=== PATIENT | female | born 1955 | race Caucasian/White ===

== ENCOUNTER 2020-07-29 09:17 | Outpatient (REF) | payer OTHER, SELFPAY ==
--- NOTE | 2020-07-29 | US_ITS ---
EXAMINATION: NONINVASIVE ASSESSMENT OF THE ARTERIES OF BOTH LOWER EXTREMITIES TO INCLUDE A PVR EXAM LIMITED (1-2 LEVELS) AND PRADIP, BILATERAL ? CLINICAL INFORMATION: Peripheral vascular disease COMPARISON: Noninvasive ultrasound examination of the lower extremities on 01/16/2020 TECHNIQUE: The ankle/brachial indices of the distal posterior tibial and the dorsalis pedis arteries were obtained of the lower extremity arterial system on the right; along with pressures and pulse volume recordings at the ankle and duplex Doppler techniques of the common femoral, proximal profunda, superficial femoral, popliteal, and posterior tibial arteries. The study was performed at rest. ? FINDINGS AT REST:? RIGHT LE. Right Ankle-Brachial Index: 0.99 (higher of the DP/PT) >0.97-1.25 = normal - no significant arterial disease 0.75-0.96 = mild peripheral arterial disease 0.50-0.74 = moderate peripheral arterial disease <0.50 = severe peripheral arterial disease <0.30 = critical arterial disease 2. SEGMENTAL PRESSURES: Ankle: PT 151 DP 144 3. PVR WAVEFORMS: Ankle: Biphasic 4. DIRECT DUPLEX: Common femoral: Biphasic waveform, Significant atherosclerotic plaque, elevated velocities, greater than 2:1 ratio Proximal femoral: Biphasic waveform, normal velocity, no significant atherosclerotic disease Mid femoral: Biphasic waveform, normal velocity, no significant atherosclerotic disease Distal femoral: Biphasic waveform, normal velocity, no significant atherosclerotic disease Proximal profunda: Biphasic waveform, normal velocity, no significant atherosclerotic disease Popliteal: Biphasic waveform, normal velocity, no significant atherosclerotic disease Posterior tibial: Biphasic waveform, normal velocity, no significant atherosclerotic disease No right lower extremity stents or bypass graft is visualized. ? IMPRESSION: 1. Normal right leg PRADIP. 2. Significant atherosclerotic plaque in the right common femoral artery with elevated velocities suggesting moderate stenosis.
== END 2020-07-29 09:18 | disposition home or self-care (01) ==
LOC: HO.US 09:17
PROVIDERS: PCP Hospitalist; Visit Provider Surgery Vascular Surgery
DX: I73.9 Peripheral vascular disease, unspecified (principal)
CPT/HCPCS: 93923; 93926

== ENCOUNTER → 2020-08-19 10:52 | Outpatient (BNVA) | payer OTHER, SELFPAY | PROVIDERS: PCP Hospitalist; Visit Provider Surgery Vascular Surgery | DX: I73.9 Peripheral vascular disease, unspecified (principal); Z89.512 Acquired absence of left leg below knee | CPT/HCPCS: 99213 ==

== ENCOUNTER 2020-08-26 08:22 | Day surgery (SDC) | payer OTHER, SELFPAY ==
[2020-08-19 15:07] VITALS: BMI 17.4
--- NOTE | 2020-08-25 12:20 | P.CONAN_ITS ---
Documented by User: Renetta Dior 08/25/20 12:26 HPI - Anesthesia Eval Consult details Narrative: 64yo F for Colonoscopy PMFSH Past Medical History Medical History Carotid artery stenosis CVA (cerebral vascular accident) GERD (gastroesophageal reflux disease) Hyperlipidemia Hypertension On beta angel at home Peripheral artery disease PVD (peripheral vascular disease) Surgical History Surgical History H/O colonoscopy Hx of blood clots S/P BKA (below knee amputation) Status post femoropopliteal bypass surgery Social History Social History Smoking Status: Former smoker Years Smoked: 30 Smoking Quit Date: 2017 Patient Interested in Nicotine Replacement: No Patient Given Instructions on How to Stop Smoking: No Second Hand Smoke Exposure: No Use of substances other than those prescribed or required for medical reasons: No Have you been hit, kicked, punched, or otherwise hurt by someone within the past year? If so, by whom?: No Advance Directives: No Advance Directives Information Provided: No Advance Directives on File: No Meds Allergies Allergy/AdvReac Type Severity Reaction Status Date / Time Penicillins [PENICILLINS] Allergy Severe ANAPHYLAXIS Verified 08/26/20 09:00 Home Medications Medication Instructions Recorded Confirmed Type amlodipine 5 mg tablet 5 mg PO DAILY 08/19/20 08/19/20 History aspirin 81 mg chewable tablet 1 tab PO DAILY 08/19/20 08/19/20 History atorvastatin 40 mg PO DAILY 08/19/20 08/19/20 History folic acid 1 mg tablet 1 mg PO DAILY 08/19/20 08/19/20 History metoprolol succinate 25 mg 25 mg PO DAILY 08/19/20 08/26/20 History tablet,extended release 24 hr peg 3350-electrolytes 236 ml PO DIRECTED 08/19/20 History gram-22.74 gram-6.74 gram-5.86 gram solution Exam Exam Date and Time: August 25, 2020 1220 Height,Weight and Vital Signs: Height 5 ft 2 in Weight 43.091 kg Narrative Narrative: EKG 08/2019: NSR with SA @ 88, LAD Assessment and Plan Assessment Anesthesia Assessment: Chart Reviewed Documented by User: Marguerite Jose 08/26/20 09:43 [facility] Past Medical History Medical History Carotid artery stenosis CVA (cerebral vascular accident) GERD (gastroesophageal reflux disease) Hyperlipidemia Hypertension On beta angel at home Peripheral artery disease PVD (peripheral vascular disease) Surgical History Surgical History H/O colonoscopy Hx of blood clots S/P BKA (below knee amputation) Status post femoropopliteal bypass surgery Social History Social History Smoking Status: Former smoker Years Smoked: 30 Smoking Quit Date: 2017 Patient Interested in Nicotine Replacement: No Patient Given Instructions on How to Stop Smoking: No Second Hand Smoke Exposure: No Use of substances other than those prescribed or required for medical reasons: No Have you been hit, kicked, punched, or otherwise hurt by someone within the past year? If so, by whom?: No Advance Directives: No Advance Directives Information Provided: No Advance Directives on File: No Meds Allergies Allergy/AdvReac Type Severity Reaction Status Date / Time Penicillins [PENICILLINS] Allergy Severe ANAPHYLAXIS Verified 08/26/20 09:00 Home Medications Medication Instructions Recorded Confirmed Type amlodipine 5 mg tablet 5 mg PO DAILY 08/19/20 08/19/20 History aspirin 81 mg chewable tablet 1 tab PO DAILY 08/19/20 08/19/20 History atorvastatin 40 mg PO DAILY 08/19/20 08/19/20 History folic acid 1 mg tablet 1 mg PO DAILY 08/19/20 08/19/20 History metoprolol succinate 25 mg 25 mg PO DAILY 08/19/20 08/26/20 History tablet,extended release 24 hr peg 3350-electrolytes 236 ml PO DIRECTED 08/19/20 History gram-22.74 gram-6.74 gram-5.86 gram solution Assessment and Plan Assessment Anesthesia Assessment: Anesthesia Plan Discussed and Chart Reviewed Final Anesthetic Review NPO: Yes ASA Class: II Final Preanesthetic Review: No Changes in Pt Med Stat, Meds/Allgs Chart Reviewed, Consent Obtained/Reviewed and Anes Risks/Benef Reviewed Patient Risk: Low Procedure Risk: Low Anesthetic Plan Anesthetic Plan: MAC: Disposition: Standard PACU
[2020-08-26] MEDS: Lactated Ringers 1,000 ML 100 ML IVCONT (09:00)
[2020-08-26 09:01] VITALS: BP 153/69; PULSE 96; RESP 16; TEMP 36.6; O2SAT 100
[2020-08-26 09:04] VITALS: BMI 18.6
--- NOTE | 2020-08-26 09:31 | MHC.SHP ---
Pre-Procedural Eval Section B Chief Complaint: SCREENING Details of Present Illness: Colon cancer screening Peripheral arterial vascular disease with LBKA--09/03/19 Relevant Family History (Specify if Yes): No Relevant Social History: None Present Medications: see Short Stay Collaborative assessment Medical History: Significant History (Hypertension, hyperlipidemia, peripheral arterial vascular disease, Gerd) History of Previous Operations: No relevant previous surgery Allergies: Allergies Allergy/AdvReac Type Severity Reaction Status Date / Time Penicillins [PENICILLINS] Allergy Severe ANAPHYLAXIS Verified 08/26/20 09:00 Review of Systems Sugical H&P ROS: Negative: Constitution, Cardiovascular, Respiratory and Gastrointestinal (last colo > 10 yrs ago) Exam Surgical H&P Exam: Normal: HEENT, Normal: Heart, Normal: Lungs and Normal: Skin and Significant Findings: Extremities (LBKA) Plan Diagnosis/Plan: Unchanged Patient has been examined and remains a candidate for the planned procedure--YES
--- NOTE | 2020-08-26 09:43 | HO.ANESPROP2 ---
[facility] Past Medical History Medical History Carotid artery stenosis CVA (cerebral vascular accident) GERD (gastroesophageal reflux disease) Hyperlipidemia Hypertension On beta angel at home Peripheral artery disease PVD (peripheral vascular disease) Surgical History Surgical History H/O colonoscopy Hx of blood clots S/P BKA (below knee amputation) Status post femoropopliteal bypass surgery Social History Social History Smoking Status: Former smoker Years Smoked: 30 Smoking Quit Date: 2017 Patient Interested in Nicotine Replacement: No Patient Given Instructions on How to Stop Smoking: No Second Hand Smoke Exposure: No Use of substances other than those prescribed or required for medical reasons: No Have you been hit, kicked, punched, or otherwise hurt by someone within the past year? If so, by whom?: No Advance Directives: No Advance Directives Information Provided: No Advance Directives on File: No Meds Allergies Allergy/AdvReac Type Severity Reaction Status Date / Time Penicillins [PENICILLINS] Allergy Severe ANAPHYLAXIS Verified 08/26/20 09:00 Home Medications Medication Instructions Recorded Confirmed Type amlodipine 5 mg tablet 5 mg PO DAILY 08/19/20 08/19/20 History aspirin 81 mg chewable tablet 1 tab PO DAILY 08/19/20 08/19/20 History atorvastatin 40 mg PO DAILY 08/19/20 08/19/20 History folic acid 1 mg tablet 1 mg PO DAILY 08/19/20 08/19/20 History metoprolol succinate 25 mg 25 mg PO DAILY 08/19/20 08/26/20 History tablet,extended release 24 hr peg 3350-electrolytes 236 ml PO DIRECTED 08/19/20 History gram-22.74 gram-6.74 gram-5.86 gram solution Exam Exam Date and Time: August 26, 2020 0943 Height,Weight and Vital Signs: Height 5 ft 2 in Weight 46.266 kg Last Vital Signs Temp 97.9 F 08/26/20 09:01 Pulse 96 08/26/20 09:01 Resp 16 08/26/20 09:01 BP 153/69 H 08/26/20 09:01 Pulse Ox 100 08/26/20 09:01 Airway Mallampati Class: II TM Dist: >3cm Neck ROM: Full Loose/Missing/Broken Teeth: Yes and Upper
--- NOTE | 2020-08-26 10:18 | PM.PROC ---
Brief Operative Note Date of procedure: 08/26/20 Pre-op diagnosis: colon cancer screening Post-op diagnosis: other (Colonic polyps, Diverticulosis, Int.Hemorrhoids.) Procedure: colonoscopy with excisional polypectomy x3 and rectal bx Anesthesia: MAC (MD Mitchell) Surgeon: Nurys Call Estimated blood loss (mL): 5 Pathology: other (asc colon polyp, Descending colon polyp, rectal bx thickened fold) Condition: stable Disposition: PACU
[2020-08-26 10:20] VITALS: BP 106/48; PULSE 76; RESP 16; TEMP 36.2; O2SAT 100
[2020-08-26 10:36] VITALS: BP 121/64; PULSE 79; RESP 16; TEMP 36.2; O2SAT 100
--- NOTE | 2020-08-26 10:58 | HO.POSTANES ---
Post Anesthesia Evaluation Post Anesthesia Evaluation Vital Signs: Vital Signs Temp Pulse Resp BP Pulse Ox 08/26/20 10:36 97.2 F 79 16 121/64 100 08/26/20 10:20 97.2 F 76 16 106/48 L 100 08/26/20 09:01 97.9 F 96 16 153/69 H 100 Anesthesia: Monitored Mental Status: Awake Pain Control: Satisfactory Nausea/Vomiting: None Hydration: Adequate Anesthesia-Related Issues: No Anes. Related Issues
--- NOTE | 2020-08-26 11:15 | OP_ITS ---
SURGEON: Nurys Call MD PROCEDURE PERFORMED: Colonoscopy with excisional polypectomies x2, rectal biopsy x1. ESTIMATED BLOOD LOSS: Minimal. COMPLICATIONS: No complications. ANESTHESIA: Monitored. ANESTHESIOLOGIST: Dr. Medrano ASSISTANTS: No bankruptcy assistant. SPECIMENS: Ascending colon polyp, descending colon polyp, 50 cm, rectal biopsies. PREOPERATIVE DIAGNOSES: Colon cancer screening, 10-year interval. POSTOPERATIVE DIAGNOSES: Colonic polyps, diverticulosis, internal hemorrhoids. TELLER: Dr. Call. FINDINGS: Digital rectal exam revealed sphincter tone to be adequate. Video colonoscope was introduced without difficulty, navigated into rectosigmoid and sigmoid. There were scattered diverticula in this area. Prep was good with some residual slightly thickened fluid adherent to the mucosa requiring mild flushing and suctioning. The scope was advanced through descending transverse, ascending colon with extrinsic abdominal pressure, facilitated movement into the cecum. Appendiceal orifice was seen. Ileocecal valve was seen. Polyps identified in the ascending colon and descending colon were removed excisionally with cold biopsy forceps. There was a texture change in the rectum and that area was biopsied with cold biopsy forceps. On withdrawing the scope. 1+ Internal hemorrhoids were noted in the anal canal. PLAN AND CURRENT RECOMMENDATIONS: Repeat asymptomatic screening in this patient should be 5 years. GRAFT OR IMPLANTS: No grafts or implants. CONDITION: Postprocedure, stable. Nurys Call MD MEN/MODL / [id number] MTDD
== END 2020-08-26 11:03 | disposition home or self-care (01) ==
PROVIDERS: PCP Hospitalist; Visit Provider Internal Medicine Gastroenterology
PROC: 0DJD8ZZ Inspection of Lower Intestinal Tract, Via Natural or Artificial Opening Endoscopic (ICD-10-PCS; CPT 45378; principal; 2020-08-26 09:30)
DX: Z12.11 Encounter for screening for malignant neoplasm of colon (principal); D12.2 Benign neoplasm of ascending colon; D12.5 Benign neoplasm of sigmoid colon; K57.30 Diverticulosis of large intestine without perforation or abscess without bleeding; K62.89 Other specified diseases of anus and rectum; K64.8 Other hemorrhoids; K21.9 Gastro-esophageal reflux disease without esophagitis; I10 Essential (primary) hypertension; I73.9 Peripheral vascular disease, unspecified; Z79.82 Long term (current) use of aspirin; Z79.899 Other long term (current) drug therapy; Z86.73 Personal history of transient ischemic attack (TIA), and cerebral infarction without residual deficits; Z89.512 Acquired absence of left leg below knee; Z87.891 Personal history of nicotine dependence; Z88.0 Allergy status to penicillin
CPT/HCPCS: 45380; 88305

== ENCOUNTER 2020-10-14 10:46 | Outpatient (REF) | payer OTHER, SELFPAY ==
[2020-10-14 13:34] LABS: Hematocrit 40.5 % (37-47); Mean Corpuscular HGB Conc 34.6 g/dl (31.0-35.0); Mean Corpuscular Hemoglobin 34.3 pg (27.0-33.0); Mean Corpuscular Volume 99.3 fL (80-98); Mean Platelet Volume 10.8 fL (9.4-12.3); Platelet Count 231 X10*3/uL (160-400); Red Blood Count 4.08 X10*6/uL (4.20-5.50); Red Cell Distribution Width 12.2 % (11.0-16.0); White Blood Count 10.6 X10*3/uL (4.8-10.8)
[2020-10-14 13:55] LABS: Anion Gap 13 (12-20); Blood Urea Nitrogen 4 mg/dL (9-16); Calcium 8.3 mg/dL (8.4-10.2); Carbon Dioxide 32 mmol/L (22-29); Chloride 97 mmol/L (96-108); Estimated Glomerular Filt Rate > 60; Glucose Fasting 102 mg/dL (60-99); Potassium 3.1 mmol/l (3.3-5.1); Sodium 139 mmol/L (135-145)
[2020-10-14 14:20] LABS: TSH reflex Free T4 1.17 mIU/mL (0.32-4.0)
== END 2020-10-14 10:47 | disposition home or self-care (01) ==
LOC: HO.WFDLDS 10:46
PROVIDERS: Visit Provider Hospitalist
DX: D64.9 Anemia, unspecified (principal); E87.6 Hypokalemia; I73.9 Peripheral vascular disease, unspecified
CPT/HCPCS: 36415; 80048; 84443; 85027

== ENCOUNTER 2021-08-11 14:22 | Outpatient (REF) | payer MEDICARE, OTHER, SELFPAY ==
--- NOTE | ~2021-08-11 | US_ITS ---
EXAMINATION: Right LOWER EXTREMITY DUPLEX CLINICAL INFORMATION: Peripheral vascular disease COMPARISON: Ultrasound 07/29/2020 TECHNIQUE: Ankle pulse volume recordings, ankle pressure measurements and ankle brachial indices were obtained of the lower extremity arterial system Real-time ultrasound and Doppler techniques (integrating B-mode 2-D vascular images, Doppler spectral analysis and color flow Doppler imaging) were utilized to interrogate the lower extremities. FINDINGS: RIGHT LE. Right Ankle-Brachial Index: 0.5 (higher of the DP/PT) >0.97-1.25 = normal - no significant arterial disease 0.75-0.96 = mild peripheral arterial disease 0.5-0.74 = moderate peripheral arterial disease <0.50 = severe peripheral arterial disease <0.30 = critical arterial disease 2. Segmental Pressures (mmHg): Brachial: 112 Ankle: PT 133, DP 127 3. PVR Waveforms: Ankle: Blunted, loss of dicrotic notch Common femoral artery: 301 cm/s, multiphasic Profunda femoris artery: 53.4 cm/s, multiphasic Superficial femoral artery (proximal): 223 cm/s, multiphasic Superficial femoral artery (mid): 119 cm/s, multiphasic Superficial femoral artery (distal): 172 cm/s, multiphasic Proximal popliteal: 206 cm/s, multiphasic Popliteal artery: 80.3 cm/s, multiphasic Proximal posterior tibial artery: 52.6 cm/s, multiphasic Distal posterior tibial artery: 78.6 cm/s, multiphasic Peroneal artery: 42 cm/s, monophasic US/US arterial duplex LE RT IMPRESSION: Normal right lower extremity PRADIP. Loss of dicrotic notch on PVR waveform suggesting inflow disease. Elevated flow velocity within the common femoral artery suggesting at least a moderate stenosis. In addition there is elevated flow velocity at the level of the distal SFA proximal popliteal artery suggesting stenosis at this level. There is otherwise multiphasic flow throughout the right lower extremity.
== END 2021-08-11 14:23 | disposition home or self-care (01) ==
LOC: HO.US 14:22
PROVIDERS: PCP Hospitalist; Visit Provider Surgery Vascular Surgery
DX: I73.9 Peripheral vascular disease, unspecified (principal)
CPT/HCPCS: 93926

== ENCOUNTER → 2021-08-18 08:57 | Outpatient (BNVA) | payer MEDICARE, OTHER, SELFPAY | PROVIDERS: PCP Hospitalist; Visit Provider Surgery Vascular Surgery | DX: I73.9 Peripheral vascular disease, unspecified (principal) | CPT/HCPCS: 99212 ==

== ENCOUNTER 2021-08-26 07:24 | Day surgery (SDC) | payer MEDICARE, OTHER, SELFPAY ==
[2021-08-26 07:48] VITALS: BMI 19.9
[2021-08-26 08:07] LABS: MANUAL DIFF FLAG NO
[2021-08-26 08:10] LABS: Basophils Absolute Auto 0.1 X10*3/uL (0.0-0.2); Basophils Percent Auto 0.8 % (0-2); Eosinophils Absolute Auto 0.3 X10*3/uL (0.0-0.4); Eosinophils Percent Auto 2.2 % (0-4); Hematocrit 38.9 % (37.0-47.0); Hemoglobin 13.8 g/dl (12.0-16.0); Imm Gran Abs Auto 0.05 X10*3/uL (0.00-0.03); Imm Gran Pct Auto 0.4 % (0.0-0.4); Lymphocytes Absolute Auto 2.6 X10*3/uL (1.2-4.9); Lymphocytes Percent Auto 21.9 % (20-40); Mean Corpuscular HGB Conc 35.5 g/dl (31.0-35.0); Mean Corpuscular Volume 98.7 fL (80.0-98.0); Neutrophils Absolute Auto 7.89 x10*3/uL (2.0-8.3); Neutrophils Percent Auto 66.7 % (45-73); Platelet Count 226 X10*3/uL (160-400); Red Blood Count 3.94 X10*6/uL (4.20-5.50); White Blood Count 11.8 X10*3/uL (4.8-10.8)
[2021-08-26 08:21] LABS: Prothrombin Time 11.1 SEC (9.9-13.0)
[2021-08-26 08:23] LABS: Partial Thromboplastin Time 30.2 SEC (24.1-38.0)
[2021-08-26 08:24] LABS: Anion Gap 14 (12-20); Blood Urea Nitrogen 5 mg/dL (9-16); Calcium 8.5 mg/dL (8.4-10.2); Carbon Dioxide 28 mmol/L (22-29); Chloride 100 mmol/L (96-108); Creatinine Clr Calc Pharmacy 65.2; Estimated Glomerular Filt Rate > 60; Glucose Random 121 mg/dL (60-115); Potassium 3.7 mmol/L (3.3-5.1); Sodium 138 mmol/L (135-145)
--- NOTE | 2021-08-26 11:55 | P.OP_ITS ---
Operative Note Operative Note Date of Service: 08/26/21 Narrative: Angiogram report from [facility] Preoperative diagnosis: Atherosclerosis of right lower extremity with activity limiting claudication Postoperative diagnosis: Same Procedure: 1. Ultrasound-guided left bcommon femoral access 2. Aortogram with right lower extremity runoff 3. Atherectomy and plasty of right popliteal artery Surgeon:Yefri Bustamante M.D., FACS, RPVI Director Of Environmental Services:None Anesthesia: Local with moderate conscious sedation. Total intraservice moderate sedation time was 60 minutes. I monitored the patient's level of consciousness and physiologic status continuously throughout the procedure. Specimens:none Drains:none Estimated blood loss: Less than 10 ml Implant: Medtronic Impact DCB 5 x 80 Indications: 65-year-old female with a prior left-sided BKA has claudication and disease of the right leg. Noninvasive testing demonstrated PRADIP of 0.5. She now presents for endovascular intervention. The patient has signed the informed consent after reviewing risks, complications, benefits, and alternatives previously discussed with the patient. The patient was given the opportunity to ask any additional questions or voice any concerns. All questions were answered to the patient's satisfaction. Procedure in detail: Patient was brought to the angiography suite prior to which a time-out was called for patient identification and site verification. Bilateral groins were prepped and draped in the standard surgical fashion. Under ultrasound guidance left common femoral was punctured with micro puncture needle and wire. Subsequently a precision 4 Lebanese sheath was then placed. Bentson wire was advanced to the level of the aorta. 4 Lebanese Flush catheter was brought up and parked at the level of the renal arteries. Aortogram was then undertaken. Catheter was brought down to the level of the iliac bifurcation. Iliacs were subsequently imaged. Catheter was then brought in up and over to the right side SFA. Runoff study was then undertaken. We then noted disease in the popliteal artery. We administered 4000 units of systemic heparin. After 5 minutes of circulation time we brought up and over a 6 Lebanese sheath. We advanced a Glidewire Advantage through the lesion. We confirmed true lumen with a now be cross catheter. We then placed a 5 Lebanese spider wire in the below-knee popliteal. We then atherectomy Merlin the distal SFA in the P1 segment of the popliteal with a Hawk 1 atherectomy device multiple unit directional passes were undertaken. Once this was accomplished we then placed a by 5 x 80 drug coated balloon. This was brought into position in under 3 minutes and insufflated for a total of 3 minutes in duration. Completion angio gram demonstrated excellent result. Catheter wire sheath was brought back to the ipsilateral side. StarClose closure device was then deployed. Interpretation of films: 1. Ultrasound demonstrates appropriate femoral puncture. Image of which was saved. 2. Aortogram demonstrates appropriate caliber aorta. Minimal disease. Appropriate take-off of the renals. 3. Iliac images demonstrate no significant disease 4. Right Leg Common femoral artery: Mild disease Profundus Femoris: No significant disease Superficial femoral artery: Disease at the distal SFA Popliteal artery (p1,p2,p3): P1 segment has significant disease P2 and P3 appear within normal limits Anterior tibial artery: Patent Peroneal artery: Patent Posterior tibial artery: Patent Dorsalis pedis/plantar arch: Incomplete Conclusion: 1. Successful atherectomy and plasty popliteal artery 2. Anticoagulation status: 6 months of aspirin and Plavix. May require long- term anticoagulation This note is constructed using voice recognition software. While every effort has been made to ensure accuracy, director of knowledge management errors may have been included. Thank you for allowing me to participate in the care of your patient. Yours sincerely, Yefri Bustamante MD, FACS, R.P.V.I.
[2021-08-26 12:00] VITALS: BP 146/65; PULSE 76; RESP 18; TEMP 36.4; O2SAT 95
[2021-08-26 12:15] VITALS: BP 140/64; PULSE 78; RESP 18; O2SAT 97
[2021-08-26 12:30] VITALS: BP 148/74; PULSE 86; RESP 18; O2SAT 98
[2021-08-26] MEDS: Clopidogrel Bisulfate 300 MG TABLET PO (12:38)
[2021-08-26] MEDS: iohexoL 300 MG/ML 50 ML INFUS..BTL IV (12:39)
[2021-08-26] MEDS: iohexoL 300 MG/ML 100 ML INFUS..BTL IV (12:39)
[2021-08-26] MEDS: Lidocaine HCl 1 % MPF 5 ML VIAL SUBCUT (12:40)
[2021-08-26 12:46] VITALS: BP 156/69; PULSE 79; RESP 17; O2SAT 98
[2021-08-26 13:01] VITALS: BP 137/61; PULSE 78; RESP 17; O2SAT 96
[2021-08-26 13:30] VITALS: BP 138/65; O2SAT 97
== END 2021-08-26 13:55 | disposition home or self-care (01) ==
PROVIDERS: PCP Hospitalist; Visit Provider Surgery Vascular Surgery
DX: I70.211 Atherosclerosis of native arteries of extremities with intermittent claudication, right leg (principal); I25.10 Atherosclerotic heart disease of native coronary artery without angina pectoris; I10 Essential (primary) hypertension; E78.5 Hyperlipidemia, unspecified; Z89.512 Acquired absence of left leg below knee; Z86.73 Personal history of transient ischemic attack (TIA), and cerebral infarction without residual deficits; Z87.891 Personal history of nicotine dependence; Z88.0 Allergy status to penicillin
CPT/HCPCS: 36415; 37225; 76937; 80048; 85025; 85610; 85730; 99152; 99153; C1714; C1725; C1760; C1769; C1884; C1887; J2250; J3010; Q9967

== ENCOUNTER → 2021-09-10 10:52 | Outpatient (BNVA) | payer MEDICARE, OTHER, SELFPAY | PROVIDERS: PCP Hospitalist; Visit Provider Surgery Vascular Surgery | DX: I73.9 Peripheral vascular disease, unspecified (principal) | CPT/HCPCS: 99212 ==

== ENCOUNTER 2021-12-09 09:48 | Outpatient (REF) | payer MEDICARE, OTHER, SELFPAY ==
--- NOTE | ~2021-12-09 | US_ITS ---
EXAMINATION: Right LOWER EXTREMITY DUPLEX CLINICAL INFORMATION: Peripheral vascular disease COMPARISON: Comparison is made to the previous study dated 08/11/2021. TECHNIQUE: Ankle pulse volume recordings, ankle pressure measurements and ankle brachial indices were obtained of the lower extremity arterial system Real-time ultrasound and Doppler techniques (integrating B-mode 2-D vascular images, Doppler spectral analysis and color flow Doppler imaging) were utilized to interrogate the lower extremities. FINDINGS: RIGHT LE. Right Ankle-Brachial Index: 0.90. Previously, 0.5 (higher of the DP/PT) >0.97-1.25 = normal - no significant arterial disease 0.75-0.96 = mild peripheral arterial disease 0.5-0.74 = moderate peripheral arterial disease <0.50 = severe peripheral arterial disease <0.30 = critical arterial disease 2. Segmental Pressures (mmHg): Brachial: The left brachial pressure of 125 mmHg was utilized. The right brachial pressure measures 61 mmHg and appears abnormal. Ankle: PT 112, DP 100 3. PVR Waveforms: Ankle: Blunted, loss of dicrotic notch Common femoral artery: 141 cm/s and triphasic. Previously, 301 cm/s, multiphasic Profunda femoris artery: 73 cm/s and biphasic. Previously, 53.4 cm/s, multiphasic Superficial femoral artery (proximal): 149 cm/s and biphasic. Previously, 223 cm/s, multiphasic Superficial femoral artery (mid): 97 cm/s and biphasic. Previously, 119 cm/s, multiphasic Superficial femoral artery (distal): 85 cm/s and biphasic. Previously, 172 cm/s, multiphasic Popliteal: 87 cm/s and biphasic. Previously, 206 cm/s, multiphasic Proximal posterior tibial artery: 64 cm/s and biphasic. Previously, 52.6 cm/s, multiphasic An arrhythmia was noted during the duplex portion of the examination. The patient is status post left below-knee amputation. US/US arterial duplex LE RT IMPRESSION: 1. There is mild peripheral arterial disease based on the ankle-brachial index. However, the ankle-brachial index is improved when compared to the previous examination. 2. The hemodynamically significant stenosis in the right common femoral artery is also improved when compared to the previous examination. No focal hemodynamically significant stenosis is seen in the superficial femoral artery or popliteal artery runoff. 3. Incidental note is made of an arrhythmia.
== END 2021-12-09 09:49 | disposition home or self-care (01) ==
LOC: HO.US 09:48
PROVIDERS: PCP Hospitalist; Visit Provider Surgery Vascular Surgery
DX: I73.9 Peripheral vascular disease, unspecified (principal)
CPT/HCPCS: 93923; 93926

== ENCOUNTER → 2021-12-10 11:44 | Outpatient (BNVA) | payer MEDICARE, OTHER, SELFPAY | PROVIDERS: PCP Hospitalist; Visit Provider Surgery Vascular Surgery | DX: I73.9 Peripheral vascular disease, unspecified (principal); Z98.890 Other specified postprocedural states | CPT/HCPCS: 99212 ==

== ENCOUNTER 2022-06-03 10:52 | Outpatient (REF) | payer MEDICARE, OTHER, SELFPAY ==
--- NOTE | ~2022-06-03 | US_ITS ---
EXAMINATION: ANKLE-BRACHIAL INDEX RIGHT SINGLE LEVEL PULSE VOLUME RECORDING RIGHT ARTERIAL DUPLEX RIGHT LEG CLINICAL INFORMATION: Peripheral vascular disease COMPARISON: 12/09/21 TECHNIQUE: Right-sided PRADIP, PVR, duplex arterial Doppler. FINDINGS: RIGHT: Ankle-brachial index: 0.86 PVR: Mildly abnormal Common femoral: PSV 203 cm/s. Biphasic waveform. Deep femoral: PSV 50 cm/s. Biphasic waveform. Proximal superficial femoral: PSV 95 cm/s. Biphasic waveform. Mid superficial femoral: PSV 103 cm/s. Biphasic waveform. Distal superficial femoral: PSV 70 cm/s. Biphasic waveform. Popliteal: PSV 71 cm/s. Biphasic waveform. Posterior tibial: PSV 88 cm/s. Biphasic waveform. Peroneal: PSV 73 cm/s. Biphasic waveform. US/US arterial duplex LE RT IMPRESSION: Mild peripheral arterial disease with PRADIP of 0.86 (previous 0.90). Mildly abnormal pulse volume recording at the ankle. Mild peripheral arterial disease with biphasic waveforms throughout the right lower extremity.
--- NOTE | ~2022-06-03 | US_ITS ---
EXAMINATION: ANKLE-BRACHIAL INDEX RIGHT SINGLE LEVEL PULSE VOLUME RECORDING RIGHT ARTERIAL DUPLEX RIGHT LEG CLINICAL INFORMATION: Peripheral vascular disease COMPARISON: 12/09/21 TECHNIQUE: Right-sided PRADIP, PVR, duplex arterial Doppler. FINDINGS: RIGHT: Ankle-brachial index: 0.86 PVR: Mildly abnormal Common femoral: PSV 203 cm/s. Biphasic waveform. Deep femoral: PSV 50 cm/s. Biphasic waveform. Proximal superficial femoral: PSV 95 cm/s. Biphasic waveform. Mid superficial femoral: PSV 103 cm/s. Biphasic waveform. Distal superficial femoral: PSV 70 cm/s. Biphasic waveform. Popliteal: PSV 71 cm/s. Biphasic waveform. Posterior tibial: PSV 88 cm/s. Biphasic waveform. Peroneal: PSV 73 cm/s. Biphasic waveform. US/US PRADIP complete IMPRESSION: Mild peripheral arterial disease with PRADIP of 0.86 (previous 0.90). Mildly abnormal pulse volume recording at the ankle. Mild peripheral arterial disease with biphasic waveforms throughout the right lower extremity.
== END 2022-06-03 10:53 | disposition home or self-care (01) ==
LOC: HO.US 10:52
PROVIDERS: PCP Hospitalist; Visit Provider Surgery Vascular Surgery
DX: I73.9 Peripheral vascular disease, unspecified (principal)
CPT/HCPCS: 93923; 93926

== ENCOUNTER → 2022-06-08 13:30 | Outpatient (BNVA) | payer MEDICARE, OTHER, SELFPAY | PROVIDERS: PCP Hospitalist; Visit Provider Surgery Vascular Surgery | DX: I73.9 Peripheral vascular disease, unspecified (principal); Z89.512 Acquired absence of left leg below knee | CPT/HCPCS: 99212 ==

== ENCOUNTER 2023-05-26 11:11 | Outpatient (REF) | payer MEDICARE, OTHER, SELFPAY ==
--- NOTE | ~2023-05-26 | US_ITS ---
EXAMINATION: ANKLE-BRACHIAL INDEX RIGHT SINGLE LEVEL PULSE VOLUME RECORDING RIGHT ARTERIAL DUPLEX RIGHT LEG CLINICAL INFORMATION: Peripheral vascular disease COMPARISON: 06/03/2022 TECHNIQUE: Right-sided PRADIP, PVR, duplex arterial Doppler. FINDINGS: RIGHT: Ankle-brachial index: 0.77 PVR: Biphasic waveform Common femoral: PSV 160 cm/s. Biphasic waveform. Deep femoral: PSV 145 cm/s. Biphasic waveform. Proximal superficial femoral: PSV 136 cm/s. Biphasic waveform. Mid superficial femoral: PSV 82 cm/s. Biphasic waveform. Distal superficial femoral: PSV 69 cm/s. Biphasic waveform. Popliteal: PSV 78 cm/s. Biphasic waveform. Posterior tibial: PSV 59 cm/s. Biphasic waveform. US/US arterial duplex LE RT IMPRESSION: Mild peripheral arterial disease with PRADIP of 0.77 (previous 0.86).
--- NOTE | ~2023-05-26 | US_ITS ---
EXAMINATION: ANKLE-BRACHIAL INDEX RIGHT SINGLE LEVEL PULSE VOLUME RECORDING RIGHT ARTERIAL DUPLEX RIGHT LEG CLINICAL INFORMATION: Peripheral vascular disease COMPARISON: 06/03/2022 TECHNIQUE: Right-sided PRADIP, PVR, duplex arterial Doppler. FINDINGS: RIGHT: Ankle-brachial index: 0.77 PVR: Biphasic waveform Common femoral: PSV 160 cm/s. Biphasic waveform. Deep femoral: PSV 145 cm/s. Biphasic waveform. Proximal superficial femoral: PSV 136 cm/s. Biphasic waveform. Mid superficial femoral: PSV 82 cm/s. Biphasic waveform. Distal superficial femoral: PSV 69 cm/s. Biphasic waveform. Popliteal: PSV 78 cm/s. Biphasic waveform. Posterior tibial: PSV 59 cm/s. Biphasic waveform. US/US PRADIP complete IMPRESSION: Mild peripheral arterial disease with PRADIP of 0.77 (previous 0.86).
== END 2023-05-26 11:12 | disposition home or self-care (01) ==
LOC: HO.US 11:11
PROVIDERS: Visit Provider Surgery Vascular Surgery
DX: I70.211 Atherosclerosis of native arteries of extremities with intermittent claudication, right leg (principal)
CPT/HCPCS: 93923; 93926

== ENCOUNTER 2023-06-23 10:07 | Outpatient (AMB) | payer MEDICARE, OTHER, SELFPAY ==
[2023-06-23 10:11] VITALS: BP 144/70; PULSE 104; O2SAT 100; BMI 19.4
--- NOTE | 2023-06-23 10:11 | MHC.OFFVIS ---
Intake Vital Signs 06/23/23 10:11 Height 5 ft 2 in Weight 106 lb BMI 19.4 BP 144/70 H Blood Pressure Location Lt brachial Position Sitting Pulse 104 H Pulse Source Pulse Oximeter Pulse Oximetry (%) 100 Oxygen Delivery Method Room Air Intake Visit Reasons: 1 yr follow up s/p Art US 05/26/23 Intake Note: Pt presents to the office today for a 1 year follow up s/p art US 05/26/23. Pt states she is feeling well. Pt states she has pain in her left leg all the time that comes and goes. Pt states she had a incident a couple of weeks ago where she found blood and clear fluid in her [place]. Allergies Penicillins [PENICILLINS] Allergy (Severe, Verified 06/23/23 10:12) ANAPHYLAXIS penicillamine Allergy (Unknown, Verified 06/23/23 10:12) Anaphylaxis HPI 1 yr follow up s/p Art US 05/26/23 HPI Details Very pleasant 67-year-old female presents for follow-up regarding peripheral vascular disease. She has had prior left below-knee amputation. She has been doing well with her prosthetic. Ambulating fairly well. She now presents for routine surveillance follow-up of the right lower extremity. [facility] Medical History Carotid artery stenosis CVA (cerebral vascular accident) GERD (gastroesophageal reflux disease) Hyperlipidemia Hypertension Hypokalemia On beta angel at home Peripheral artery disease PVD (peripheral vascular disease) Surgical History H/O colonoscopy Hx of blood clots S/P BKA (below knee amputation) Status post femoropopliteal bypass surgery Family History Father Medical history unknown Mother Medical history unknown Social History Patient Tobacco Use Status: Former Tobacco user Years Smoked: 30 Second Hand Smoke Exposure: No Cognitive needs: Yes (cane) Hearing needs: No Vision needs: Yes (glasses) Review of Systems Const All systems reviewed & are unremarkable except as noted in HPI and below Reports no additional complaints ENT Reports Normal hearing present Card Denies chest pain, Denies chest pain at rest, Denies chest pain with activity and Denies pedal edema Resp Denies cough GI Denies abdominal pain Musc Denies abnormal gait, Denies muscle cramps and Denies radiating pain into limb Skin/Breast Denies skin ulcer and Denies wounds Neuro Reports Normal hearing present and Denies abnormal gait Psych Reports no additional complaints Physical Exam Vital Signs: Last Vital Signs Pulse 104 H 06/23/23 10:11 BP 144/70 H 06/23/23 10:11 Pulse Ox 100 06/23/23 10:11 Oxygen Delivery Method Room Air 06/23/23 10:11 BMI result Body Mass Index 19.4 Const General: cooperative, healthy appearing and comfortable Orientation/consciousness: oriented to person, oriented to place and oriented to time HEENT Head: Yes normal to inspection Neck Neck: Yes normal visual inspection Carotids: no bruits Chest Chest palpation & inspection: normal inspection of the chest Resp Effort & Inspection: normal respiratory effort and able to speak in complete sentences Auscultation: clear to auscultation bilaterally, no crackles, no rales, no rhonchi and no wheezes Cardio Other: Right DP signal left BKA Rate: regular rate Rhythm: regular rhythm Heart sounds: S1 normal heart sound present and S2 normal heart sound present Bruits: no carotid bruits GI Inspection: Yes normal to inspection Skin Wounds: amputation site Hair: normal Neuro General: oriented to person, oriented to place and oriented to time Cranial nerves: Yes CN's II-XII intact bilaterally and Yes Normal hearing present Cognition (Neuro): normal cognition Motor exam (neuro): 5/5 motor strength present throughout Extrem Other: venous exam: No significant superficial varicosities or spider telangiectasias, minimal edema General: No clubbing, No cyanosis and No edema Psych Appearance: grossly normal Mental Status: mental status grossly normal Speech and movement: Normal speech and movement present Results Reviewed Results Reviewed: 05/26/2023 - PRADIP on the right of 0.77 with biphasic waveforms all the way down Assessment & Plan Assessment & Plan (1) Peripheral artery disease: Comment: 08/26/2021 - right popliteal atherectomy with plasty Code(s): I73.9 - Peripheral vascular disease, unspecified Plan: In short patient has stable right lower extremity. I did review the pathophysiology of peripheral vascular disease with the patient. In addition we did discuss routine conservative measures including a healthy diet and the importance of exercise and ambulation. We did discuss risk factor modification. The patient will continue to to follow-up with surveillance follow-up in approximately 1 year time. Thank you for allowing us to participate in this patient's care. If there are any questions or concerns please do not hesitate to contact us. Orders: Orders US arterial duplex LE RT 364 Days I73.9 - Peripheral vascular disease, unspecified Coding Level of Care Code Est Pt Level 4 (08304) Diagnoses Peripheral artery disease I73.9
== END 2023-06-23 10:47 | disposition home or self-care (01) ==
PROVIDERS: PCP Hospitalist; Visit Provider Surgery Vascular Surgery
DX: I73.9 Peripheral vascular disease, unspecified (principal); Z98.62 Peripheral vascular angioplasty status
CPT/HCPCS: 99213

== ENCOUNTER → 2023-06-23 10:07 | Outpatient (BNVA) | payer MEDICARE, OTHER, SELFPAY | PROVIDERS: PCP Hospitalist; Visit Provider Surgery Vascular Surgery | DX: I73.9 Peripheral vascular disease, unspecified (principal) | CPT/HCPCS: 99212 ==

== ENCOUNTER 2023-08-23 08:56 | Outpatient (AMB) | payer MEDICARE, OTHER, SELFPAY ==
--- NOTE | 2023-08-23 08:57 | A.OFFVIS_ITS ---
Intake Vital Signs 08/23/23 08:58 Height 5 ft 2 in Weight 106 lb BMI 19.4 Intake Visit Reasons: Add-on follow up small wound on BKA Intake Note: follow up for Left BKA wound/ irritation that started in May and has not healed since, still has drainage and has guaze placed over area. Pt has pain in the area and prosthetic office stated there could still be a stitch or bone spur and suggested follow up. Accompanied by: Self / Same As Patient Allergies Penicillins [PENICILLINS] Allergy (Severe, Verified 08/23/23 09:03) ANAPHYLAXIS penicillamine Allergy (Unknown, Verified 08/23/23 09:03) Anaphylaxis HPI Add-on follow up small wound on BKA HPI Details Very pleasant 67-year-old female has a left below-knee amputation which was done several years prior. She had been doing fairly well with her prosthetic with no issues. In the center of the incision line most recently she has developed a small pinpoint all opening. It has been draining some serous fluid. It is a source of concern for her. She now presents for follow-up. Of note otherwise she is doing fairly well in ambulating extremely well with the prosthetic [facility] Medical History Hypokalemia CVA (cerebral vascular accident) PVD (peripheral vascular disease) On beta angel at home Peripheral artery disease Carotid artery stenosis GERD (gastroesophageal reflux disease) Hyperlipidemia Hypertension Surgical History H/O colonoscopy Hx of blood clots Status post femoropopliteal bypass surgery S/P BKA (below knee amputation) Family History Father Medical history unknown Mother Medical history unknown Social History Patient Tobacco Use Status: Former Tobacco user Years Smoked: 30 Second Hand Smoke Exposure: No Cognitive needs: Yes (cane) Hearing needs: No Vision needs: Yes (glasses) Review of Systems Const All systems reviewed & are unremarkable except as noted in HPI and below Reports no additional complaints ENT Reports Normal hearing present Card Denies chest pain, Denies chest pain at rest, Denies chest pain with activity and Denies pedal edema Resp Denies cough GI Denies abdominal pain Musc Denies abnormal gait, Denies muscle cramps and Denies radiating pain into limb Skin/Breast Denies skin ulcer and Denies wounds Neuro Reports Normal hearing present and Denies abnormal gait Psych Reports no additional complaints Physical Exam Vital Signs: BMI result Body Mass Index 19.4 Const General: cooperative, healthy appearing and comfortable Orientation/consciousness: oriented to person, oriented to place and oriented to time HEENT Head: Yes normal to inspection Neck Neck: Yes normal visual inspection Carotids: no bruits Chest Chest palpation & inspection: normal inspection of the chest Resp Effort & Inspection: normal respiratory effort and able to speak in complete sentences Auscultation: clear to auscultation bilaterally, no crackles, no rales, no rhonchi and no wheezes Cardio Rate: regular rate Rhythm: regular rhythm Heart sounds: S1 normal heart sound present and S2 normal heart sound present Bruits: no carotid bruits Peripheral pulses: Peripheral pulses 2+ throughout GI Inspection: Yes normal to inspection Skin Other: Left BKA stump central opening approximately 0.5 cm with serous drainage. Wounds: amputation site Hair: normal Neuro General: oriented to person, oriented to place and oriented to time Cranial nerves: Yes CN's II-XII intact bilaterally and Yes Normal hearing present Cognition (Neuro): normal cognition Motor exam (neuro): 5/5 motor strength present throughout Extrem Other: venous exam: No significant superficial varicosities or spider telangie ctasias, minimal edema General: No clubbing, No cyanosis and No edema Psych Appearance: grossly normal Mental Status: mental status grossly normal Speech and movement: Normal speech and movement present Assessment & Plan Assessment & Plan (1) Peripheral artery disease: Comment: 08/26/2021 - right popliteal atherectomy with plasty Code(s): I73.9 - Peripheral vascular disease, unspecified Plan: In short patient has a nonhealing left BKA stump. Will obtain CT scan to see if there is any underlying issues with this. She will follow up with us after testing. Thank you for allowing us to assist in her care. Orders: Orders CT lower leg LT wo IV con Today I73.9 - Peripheral vascular disease, unspecified Coding Level of Care Code Est Pt Level 4 (38581) Diagnoses Peripheral artery disease I73.9
[2023-08-23 08:58] VITALS: BMI 19.4
== END 2023-08-23 09:23 | disposition home or self-care (01) ==
PROVIDERS: PCP Hospitalist; Visit Provider Surgery Vascular Surgery
DX: I73.9 Peripheral vascular disease, unspecified (principal)
CPT/HCPCS: 99213

== ENCOUNTER → 2023-08-23 08:56 | Outpatient (BNVA) | payer MEDICARE, OTHER, SELFPAY | PROVIDERS: PCP Hospitalist; Visit Provider Surgery Vascular Surgery | DX: T87.89 Other complications of amputation stump (principal); I73.9 Peripheral vascular disease, unspecified; Z89.512 Acquired absence of left leg below knee | CPT/HCPCS: 99212 ==

== ENCOUNTER 2023-10-03 10:13 | Outpatient (REF) | payer MEDICARE, OTHER, SELFPAY ==
--- NOTE | ~2023-10-03 | CT_ITS ---
EXAMINATION: CT FEMUR WITHOUT CONTRAST, LEFT CLINICAL INFORMATION: Left below-knee amputation. Nonhealing stump ulcer. Evaluate underlying bone issue. Peripheral vascular disease. COMPARISON: None. TECHNIQUE: Contiguous axial CT images of the left femur were obtained without contrast. Multiplanar reformats were provided and reviewed. This CT examination was performed using dose optimization techniques as appropriate, variously including the following: *Automated exposure control *Adjustment of mA and/or kV according to patient size (this includes techniques or standardized protocols for targeted exams where dose is matched to indication/reason for exam; i.e. extremities or head) *Use of iterative reconstruction technique. DOSE: 218 mGy-cm. FINDINGS: Below-knee amputation. There is focal ulceration along the distal aspect of the persistent tibia which extends to the adjacent cortex. Adjacent skin thickening and subcutaneous edema, consistent with cellulitis. No large fluid collection or abscess formation. There is scalloping of the adjacent distal tibia measuring 0.8 cm in ML dimension which could indicate early osteomyelitis in the appropriate clinical setting. No additional lytic or blastic osseous lesion. No periosteal reaction. Diffuse osteopenia. No acute fracture or dislocation. No significant joint space narrowing or marginal osteophytes. Mild muscle edema. No measurable tear or retraction. No soft tissue mass or fluid collection. Partially visualized sigmoid diverticulosis without evidence of acute diverticulitis. No pelvic mass or fluid collection. Atherosclerotic calcifications. CT/CT femur LT wo IV con IMPRESSION: 1. Below knee amputation. Focal ulceration along the distal aspect of the persistent tibia which extends to the adjacent cortex. Adjacent skin thickening and subcutaneous edema, consistent with cellulitis. No large fluid collection or abscess formation. 2. Scalloping of the adjacent distal tibia measuring 0.8 cm in ML dimension which could indicate early osteomyelitis in the appropriate clinical setting. 3. Diffuse osteopenia. 4. Diverticulosis.
== END 2023-10-03 10:14 | disposition home or self-care (01) ==
LOC: HO.CT 10:13
PROVIDERS: PCP Internal Medicine; Visit Provider Surgery Vascular Surgery
DX: I73.9 Peripheral vascular disease, unspecified (principal)
CPT/HCPCS: 73700

== ENCOUNTER 2023-10-11 09:40 | Outpatient (AMB) | payer MEDICARE, OTHER, SELFPAY ==
--- NOTE | 2023-10-11 09:46 | MHC.OFFVIS ---
Intake Intake Visit Reasons: CT Left LE for Left BKA ulcer Intake Note: Pt here for fallow up CT of femur without contrast on 10/03/23 also a left BKA wound irritation that started in may and has not healed since pt states the wound is still the same still had the drainage Allergies Penicillins [PENICILLINS] Allergy (Severe, Verified 10/11/23 09:50) ANAPHYLAXIS penicillamine Allergy (Unknown, Verified 10/11/23 09:50) Anaphylaxis HPI CT Left LE for Left BKA ulcer HPI Details Very pleasant 67-year-old female presents for follow-up regarding nonhealing ulcer of the left lower extremity. She has this punctate ulcer at the bottom of her stump. It has been persistent for some time. She now presents for CT follow-up of that stump. She reports she is doing relatively well otherwise. She continues to use her prosthetic. Of note her most recently in August secondary to lymphoma and she is still understandably upset about this. She now presents for routine follow-up. [facility] Medical History Hypokalemia CVA (cerebral vascular accident) PVD (peripheral vascular disease) On beta angel at home Peripheral artery disease Carotid artery stenosis GERD (gastroesophageal reflux disease) Hyperlipidemia Hypertension Surgical History H/O colonoscopy Hx of blood clots Status post femoropopliteal bypass surgery S/P BKA (below knee amputation) Family History Father Medical history unknown Mother Medical history unknown Social History Patient Tobacco Use Status: Former Tobacco user Years Smoked: 30 Second Hand Smoke Exposure: No Cognitive needs: Yes (cane) Hearing needs: No Vision needs: Yes (glasses) Review of Systems Const All systems reviewed & are unremarkable except as noted in HPI and below Reports no additional complaints ENT Reports Normal hearing present Card Denies chest pain, Denies chest pain at rest, Denies chest pain with activity and Denies pedal edema Resp Denies cough GI Denies abdominal pain Musc Denies abnormal gait, Denies muscle cramps and Denies radiating pain into limb Skin/Breast Denies skin ulcer and Denies wounds Neuro Reports Normal hearing present and Denies abnormal gait Psych Reports no additional complaints Physical Exam Const General: cooperative, healthy appearing and comfortable Orientation/consciousness: oriented to person, oriented to place and oriented to time HEENT Head: Yes normal to inspection Neck Neck: Yes normal visual inspection Carotids: no bruits Chest Chest palpation & inspection: normal inspection of the chest Resp Effort & Inspection: normal respiratory effort and able to speak in complete sentences Auscultation: clear to auscultation bilaterally, no crackles, no rales, no rhonchi and no wheezes Cardio Rate: regular rate Rhythm: regular rhythm Heart sounds: S1 normal heart sound present and S2 normal heart sound present Bruits: no carotid bruits Peripheral pulses: Peripheral pulses 2+ throughout GI Inspection: Yes normal to inspection Skin Other: Left stump 1 cm opening at the distal tip Wounds: no wounds Hair: normal Neuro General: oriented to person, oriented to place and oriented to time Cranial nerves: Yes CN's II-XII intact bilaterally and Yes Normal hearing present Cognition (Neuro): normal cognition Motor exam (neuro): 5/5 motor strength present throughout Extrem Other: venous exam: No significant superficial varicosities or spider telangiectasias, minimal edema General: No clubbing, No cyanosis and No edema Psych Appearance: grossly normal Mental Status: mental status grossly normal Speech and movement: Normal speech and movement present Results Reviewed Results Reviewed: CT scan results are concerning for osteomyelitis. Assessment & Plan Assessment & Plan (1) Peripheral artery disease: Comment: 08/26/2021 - right popliteal atherectomy with plasty Code(s): I73.9 - Peripheral vascular disease, unspecified Plan: In short patient has nonhealing BKA stump ulcer. The concern is there is underlying osteomyelitis as evidence by CT scan. I will refer to Infectious Disease. We did discuss minimizing stump use as much as possible. She will follow up with us in approximately 6 weeks time to ensure that it is progressing in the right direction. Thank you for allowing us to assist in her care. If there are any questions or concerns please do not hesitate to contact us. Orders: Referrals Infectious Disease Referral M86.9 - Osteomyelitis, unspecified Coding Level of Care Code Est Pt Level 4 (44372) Diagnoses Peripheral artery disease I73.9
== END 2023-10-11 10:08 | disposition home or self-care (01) ==
PROVIDERS: PCP Internal Medicine; Visit Provider Surgery Vascular Surgery
DX: I73.9 Peripheral vascular disease, unspecified (principal); T87.89 Other complications of amputation stump; Z89.512 Acquired absence of left leg below knee; Z98.62 Peripheral vascular angioplasty status
CPT/HCPCS: 99214

== ENCOUNTER → 2023-10-11 09:40 | Outpatient (BNVA) | payer MEDICARE, OTHER, SELFPAY | PROVIDERS: PCP Internal Medicine; Visit Provider Surgery Vascular Surgery | DX: I73.9 Peripheral vascular disease, unspecified (principal) | CPT/HCPCS: 99212 ==

== ENCOUNTER 2023-10-21 13:20 | Outpatient (AMB) | payer MEDICARE, OTHER, SELFPAY ==
--- NOTE | 2023-10-21 13:21 | MHC.OFFVIS ---
Intake Vital Signs 10/21/23 14:06 Height 5 ft 2 in Weight 96 lb BMI 17.6 BP 102/70 Blood Pressure Location Rt brachial Position Sitting Pulse 91 Pulse Source Pulse Oximeter Temp 99.3 F Temp Source Oral Pulse Oximetry (%) 98 Intake Visit Reasons: Ref.,Osteomyelitis Allergies Penicillins [PENICILLINS] Allergy (Severe, Verified 10/21/23 15:31) ANAPHYLAXIS penicillamine Allergy (Unknown, Verified 10/21/23 15:31) Anaphylaxis HPI Ref.,Osteomyelitis HPI Details She has worsening foot infection. She has nonhealing area. [facility] Medical History (Updated 10/30/23 @ 23:58 by Kassi Cisneros MD) Infection of amputation stump, left lower extremity Hypokalemia CVA (cerebral vascular accident) PVD (peripheral vascular disease) On beta angel at home Peripheral artery disease Carotid artery stenosis GERD (gastroesophageal reflux disease) Hyperlipidemia Hypertension Surgical History H/O colonoscopy Hx of blood clots Status post femoropopliteal bypass surgery S/P BKA (below knee amputation) Family History Father Medical history unknown Mother Medical history unknown Social History Household Members: None Housing: House Do you presently have visiting nurse or other home services: Yes Patient Tobacco Use Status: Former Tobacco user Years Smoked: 30 Second Hand Smoke Exposure: No service: No Cognitive needs: Yes (cane) Hearing needs: No Vision needs: Yes (glasses) Review of Systems Const All systems reviewed & are unremarkable except as noted in HPI and below Physical Exam Vital Signs: Last Vital Signs Temp 99.3 F 10/21/23 14:06 Pulse 91 10/21/23 14:06 BP 102/70 10/21/23 14:06 Pulse Ox 98 10/21/23 14:06 BMI result Body Mass Index 17.6 Const General: cooperative Orientation/consciousness: patient oriented x3 HEENT Head: Yes normal to inspection Mouth: Normal oral and palatal mucosa present Eyes General: appearance normal, both eyes and all related structures Pupils: Equal, round and reactive pupils present Resp Effort & Inspection: normal respiratory effort Cardio Rate: regular rate Rhythm: regular rhythm GI Palpation (GI): Soft to palpation and nontender General: Yes no CVA tenderness Back/Spine/Pelvis Back: no CVA tenderness Skin General skin exam: no rashes or lesions noted Neuro General: patient oriented x3 Cranial nerves: Yes CN's II-XII intact bilaterally and Yes Equal, round and reactive pupils present Extrem Other: left stump erythema Psych Appearance: grossly normal Assessment & Plan Assessment & Plan (1) Infection of amputation stump, left lower extremity: Comment: There is possible osteomyelitis Code(s): T87.44 - Infection of amputation stump, left lower extremity Plan: ER for probable admission evaluation Medications: Resumed aspirin 2 tabs PO DAILY Coding Level of Care Code Est Pt Level 3 (78045) Diagnoses Infection of amputation stump, left lower extremity T87.44
[2023-10-21 14:06] VITALS: BP 102/70; PULSE 91; TEMP 37.4; O2SAT 98; BMI 17.6
== END 2023-10-21 14:41 | disposition home or self-care (01) ==
PROVIDERS: PCP Internal Medicine; Visit Provider Internal Medicine
DX: T87.44 Infection of amputation stump, left lower extremity (principal)
CPT/HCPCS: 99213

== ENCOUNTER 2023-10-21 14:45 | Inpatient (IN) | payer MEDICARE, OTHER, SELFPAY ==
[2023-10-21 15:31] VITALS: BP 145/65; PULSE 81; RESP 16; TEMP 37.3; O2SAT 97; BMI 17.6
--- NOTE | 2023-10-21 15:35 | ED_ITS ---
HPI - General Adult General Chief complaint: General Medical Stated complaint: Fever ? Infection Time Seen by Provider: 10/21/23 18:58 Source: patient Limitations: no limitations History of Present Illness HPI narrative: 67 years old with a past medical history of peripheral vascular disease, hypertension is status post left BKA, presents to the emergency room sent from infectious disease outpatient office for possible osteomyelitis. Patient is being having clear discharge from the stump for the past few months, she underwent CT femur 2 weeks ago which showed cellulitis and concern for possible osteomyelitis. Seen as an outpatient today by Dr. Cisneros who recommended to present to the emergency room for further evaluation. Patient otherwise reports no chills but was febrile in the office. No abdominal pain nausea or vomiting. Related Data Home Medications Medication Instructions Recorded Confirmed aspirin 81 mg chewable tablet 2 tab PO DAILY 08/19/20 10/21/23 Previous Rx's Medication Instructions Recorded amlodipine 5 mg tablet 5 mg PO DAILY #90 tabs 10/22/21 atorvastatin 40 mg tablet 40 mg PO DAILY 3 months #90 tabs 07/26/22 metoprolol succinate 25 mg 25 mg PO DAILY #30 tabs 12/02/22 tablet,extended release 24 hr clopidogrel 75 mg tablet 75 mg PO DAILY #90 tabs 12/07/22 folic acid 1 mg tablet 1 mg PO DAILY #90 tabs 02/07/23 Allergies Allergy/AdvReac Type Severity Reaction Status Date / Time Penicillins [PENICILLINS] Allergy Severe ANAPHYLAXIS Verified 10/21/23 15:31 penicillamine Allergy Unknown Anaphylaxis Verified 10/21/23 15:31 Review of Systems 2 Review of Systems: Yes all other systems are reviewed and are negative PMF Past Medical History Medical History Hypokalemia CVA (cerebral vascular accident) PVD (peripheral vascular disease) On beta angel at home Peripheral artery disease Carotid artery stenosis GERD (gastroesophageal reflux disease) Hyperlipidemia Hypertension Surgical History H/O colonoscopy Hx of blood clots Status post femoropopliteal bypass surgery S/P BKA (below knee amputation) Family History Family History Father Medical history unknown Mother Medical history unknown Social History Social History Patient Tobacco Use Status: Former Tobacco user Years Smoked: 30 Smoked in Last 30 Days: Yes Second Hand Smoke Exposure: No Advance Directives: No Advance Directives Information Provided: No Cognitive needs: Yes (cane) Hearing needs: No Vision needs: Yes (glasses) Physical Exam ED Vital Signs: Vital Signs - 24 hr 10/21/23 15:31 10/21/23 19:16 Temperature 99.1 F 98.8 F Pulse Rate 81 68 Respiratory Rate 16 17 Blood Pressure 145/65 H 157/65 H Pulse Oximetry 97 98 Oxygen Delivery Method Room Air Room Air BMI result Body Mass Index 17.6 Course Course Course Narrative: This is a rapid medical exam: Additional HPI, ROS, PE not included below will be deferred to primary provider. Patient is a 67-year-old female with history of left BKA, PVD, TIA, carotid artery stenosis, HTN, HLD presenting to the ED from ID with concern for infection to stump. Son states patient was febrile there, hx of ongoing issues since amputation several years ago. Patient not febrile in triage but skin is hot to touch. Son states he was told she would require IV abx. Plan: labs including cultures Reevaluation(s) Reevaluation #1: Discussed with ID, who recommended vancomycin and admission. Will start the patient on 1 g of IV vancomycin. Pending admission Time: 19:58 Reevaluation #2: Stable pending orders. Magnesium 1.3 will replete with 2 g. Time: 21:29 Medications Administered Generic Name Dose Route Start Last Admin Trade Name Freq PRN Reason Stop Dose Admin Magnesium Sulfate 2 gm in 50 mls @ 25 mls/hr 10/21/23 20:24 10/21/23 20:52 Magnesium Sulfate/H2o IV 10/21/23 22:23 25 mls/hr ONCE ONE Administration Discontinued Medications Generic Name Dose Route Start Last Admin Trade Name Freq PRN Reason Stop Dose Admin Potassium Chloride 40 meq 10/21/23 19:26 10/21/23 20:52 Potassium Chloride Er 20 Meq Tab.Er.Prt PO 10/21/23 19:27 40 meq ONCE ONE Administration Medical Decision Making Medical Decision Making MDM Narrative: 67 years old with past medical history of left BKA, peripheral vascular disease presented to emergency room for suspected osteomyelitis. Seen by infectious disease who earlier today. Patient has anaphylaxis to penicillin. Plan is to admit for IV antibiotic, will reach out to Infectious Disease for further recommendation. Initial blood work showed mild leukocytosis and moderate hypokalemia. Will replete potassium Admission/Observation Consideration of admission/observation: Escalation of care including admission/observation considered Lab Data 10/21/23 15:57 10/21/23 15:57 Labs: Lab Results 10/21/23 Range/Units 15:57 WBC 11.0 H (4.8-10.8) X10*3/uL RBC 3.78 L (4.20-5.50) X10*6/uL Hgb 12.6 (12.0-16.0) g/dl Hct 36.1 L (37.0-47.0) % MCV 95.5 (80.0-98.0) fL MCH 33.3 H (27.0-33.0) pg MCHC 34.9 (31.0-35.0) g/dl RDW 11.9 (11.0-16.0) % Plt Count 259 (160-400) X10*3/uL MPV 9.6 (9.4-12.3) fL Immature Gran % (Auto) 0.4 (0.0-0.4) % Neut % (Auto) 60.3 (45-73) % Lymph % (Auto) 29.1 (20-40) % [place] % (Auto) 8.5 (2-11) % Eos % (Auto) 1.0 (0-4) % Baso % (Auto) 0.7 (0-2) % Lymph # (Auto) 3.2 (1.2-4.9) X10*3/uL [place] # (Auto) 0.9 (0.1-1.2) X10*3/uL Eos # (Auto) 0.1 (0.0-0.4) X10*3/uL Baso # (Auto) 0.1 (0.0-0.2) X10*3/uL Abs Immat Gran (auto) 0.04 H (0.00-0.03) X10*3/uL Absolute Neuts (auto) 6.7 (2.0-8.3) x10*3/uL Absolute Nucleated RBC 0.000 (0.0-0.012) X10*3/uL Nucleated RBC % (auto) 0.0 (0.0-0.2) /100WBC ESR 12 (0-20) MM/HR Sodium 137 (135-145) mmol/L Potassium 2.7 L D (3.3-5.1) mmol/L Chloride 100 (96-108) mmol/L Carbon Dioxide 26 (22-29) mmol/L Anion Gap 14 (12-20) BUN 5 L (9-16) mg/dL Creatinine 0.63 (0.5-1.4) mg/dL Estim Creat Clear Calc 60.4 Estimated GFR > 60 Random Glucose 98 (60-115) mg/dL Lactic Acid 0.9 (0.5-2.0) mmol/L Calcium 9.3 D (8.4-10.2) mg/dL Magnesium 1.3 L* (1.6-2.6) mg/dL Total Bilirubin 0.5 (0.0-1.0) mg/dL AST 25 (5-31) U/L ALT 14 (0-31) U/L Alkaline Phosphatase 81 (39-117) U/L C-Reactive Protein 0.22 (< or = 0.50) mg/dL Total Protein 7.0 (6.5-8.0) g/dL Albumin 4.1 (3.5-5.0) g/dL Independent Interpretation I performed an independent interpretation of an: CT Scan (from 10/14) External Record Review External record reviewed: Office record Discharge Plan Discharge Clinical Impression: Osteomyelitis Patient Disposition: Admitted As Inpatient
[2023-10-21 16:03] LABS: MANUAL DIFF FLAG NO
[2023-10-21 16:07] LABS: Basophils Absolute Auto 0.1 X10*3/uL (0.0-0.2); Basophils Percent Auto 0.7 % (0-2); Eosinophils Absolute Auto 0.1 X10*3/uL (0.0-0.4); Hematocrit 36.1 % (37.0-47.0); Hemoglobin 12.6 g/dl (12.0-16.0); Imm Gran Abs Auto 0.04 X10*3/uL (0.00-0.03); Imm Gran Pct Auto 0.4 % (0.0-0.4); Lymphocytes Absolute Auto 3.2 X10*3/uL (1.2-4.9); Lymphocytes Percent Auto 29.1 % (20-40); Mean Corpuscular HGB Conc 34.9 g/dl (31.0-35.0); Mean Corpuscular Hemoglobin 33.3 pg (27.0-33.0); Mean Corpuscular Volume 95.5 fL (80.0-98.0); Mean Platelet Volume 9.6 fL (9.4-12.3); Monocytes Absolute Auto 0.9 X10*3/uL (0.1-1.2); Monocytes Percent Auto 8.5 % (2-11); Neutrophils Absolute Auto 6.7 x10*3/uL (2.0-8.3); Neutrophils Percent Auto 60.3 % (45-73); Platelet Count 259 X10*3/uL (160-400); Red Blood Count 3.78 X10*6/uL (4.20-5.50); Red Cell Distribution Width 11.9 % (11.0-16.0)
[2023-10-21 16:16] LABS: Lactic Acid 0.9 mmol/L (0.5-2.0)
[2023-10-21 16:20] LABS: Alanine Aminotransferase 14 U/L (0-31); Albumin Level 4.1 g/dL (3.5-5.0); Alkaline Phosphatase 81 U/L (39-117); Anion Gap 14 (12-20); Aspartate Amino Transferase 25 U/L (5-31); Bilirubin Total 0.5 mg/dL (0.0-1.0); Blood Urea Nitrogen 5 mg/dL (9-16); C Reactive Protein 0.22 mg/dL (< or = 0.50); Calcium 9.3 mg/dL (8.4-10.2); Carbon Dioxide 26 mmol/L (22-29); Chloride 100 mmol/L (96-108); Creatinine Clr Calc Pharmacy 60.4; Estimated Glomerular Filt Rate > 60; Glucose Random 98 mg/dL (60-115); Potassium 2.7 mmol/L (3.3-5.1); Sodium 137 mmol/L (135-145)
[2023-10-21 17:03] LABS: Erythrocyte Sedimentation Rate 12 MM/HR (0-20)
[2023-10-21 19:16] VITALS: BP 157/65; PULSE 68; RESP 17; TEMP 37.1; O2SAT 98
--- NOTE | 2023-10-21 20:06 | PHA.MEDREC ---
Pharmacy Consult ? Medication Reconciliation Pharmacy has completed the medication reconciliation. Patient confirmed medications by claim history and previous medical records. Estephania StricklandD
[2023-10-21 20:12] LABS: Magnesium 1.3 mg/dL (1.6-2.6)
[2023-10-21] MEDS: Magnesium Sulfate/H2O 2 GM/50 ML PIGGYBACK IV (20:52)
[2023-10-21] MEDS: Potassium Chloride ER 20 MEQ TAB.ER.PRT 40 MEQ PO (20:52)
[2023-10-21] MEDS: vancomycin HCL 1,000 MG in 0.9 % Sodium Chloride 250 ML 270 MG IV (22:52)
--- NOTE | 2023-10-21 22:56 | PM.IMHP ---
History of Present Illness Date of Service: 10/21/23 Attending physician on admission: Justino Bryan Chief Complaint: Sent in from ID clinic for evaluation of possible Osteomyelitis of left BKA Patient is a 67 year old white female with history of Peripheral vascular disease, hypertension, and hyperlipidemia who was sent to the emergency room from the outpatient ID clinic for evaluation of possible OM of the amputation stump of the left leg. She had a left below knee amputation done [address] Bustamante and then started having pain in the stump 4 months ago with some clear drainage from a spot on the stump. She consulted with Dr. Bustamante and was sent to the infectious disease clinic where she was seen today and advised to come to the emergency room for admission and treatment of possible cellulitis and osteomyelitis after a CT scan done was reported as having findings that would suggest so. She denies any pain or drainage from the stump at this time. Initial work up done in the emergency room was notable for hypokalemia (2.7) and hypomagnesemia (1.3). These have been replaced. She was also running a low grade fever of 99.[address] scan of the tibia was done and it had findings concerning for cellulitis and osteomyelitis. She received a dose of vancomycin following which admission was requested. Review of Systems Review of Systems: Yes all other systems are reviewed and are negative [facility] Medical History Hypokalemia CVA (cerebral vascular accident) PVD (peripheral vascular disease) On beta angel at home Peripheral artery disease Carotid artery stenosis GERD (gastroesophageal reflux disease) Hyperlipidemia Hypertension Functional capacity: independent ambulation Family History Father Medical history unknown Mother Medical history unknown Surgical History H/O colonoscopy Hx of blood clots Status post femoropopliteal bypass surgery S/P BKA (below knee amputation) Social History Household Members: None Housing: House Do you presently have visiting nurse or other home services: Yes Patient Tobacco Use Status: Former Tobacco user Years Smoked: 30 Smoked in Last 30 Days: Yes Second Hand Smoke Exposure: No Use of substances other than those prescribed or required for medical reasons: No Have you been hit, kicked, punched, or otherwise hurt by someone within the past year? If so, by whom?: No Do you feel safe in your current relationship?: No Current Relationship Is there a partner from a previous relationship who is making you feel unsafe now?: No Are you made to feel afraid or neglected: No Advance Directives: No Advance Directives Information Provided: No Do you have thoughts of harming others: None Do you have a plan to hurt others: No Plan Recently lost weight without trying: No Eating poorly because of decreased appetite: No Nutrition Risks: No Nutritional Risk Patient : No : No Poor oral hygiene: No Cognitive needs: Yes (cane) Hearing needs: No Vision needs: Yes (glasses) Meds Allergies Allergy/AdvReac Type Severity Reaction Status Date / Time Penicillins [PENICILLINS] Allergy Severe ANAPHYLAXIS Verified 10/21/23 15:31 penicillamine Allergy Unknown Anaphylaxis Verified 10/21/23 15:31 Home Medications Medication Instructions Recorded Confirmed Last Taken Type aspirin 81 mg chewable tablet 2 tab PO DAILY 08/19/20 10/21/23 10/21/23 History amlodipine 5 mg tablet 5 mg PO DAILY 10/22/23 10/22/23 Unknown History atorvastatin 40 mg tablet 40 mg PO DAILY 10/22/23 10/22/23 Unknown History clopidogrel 75 mg tablet 75 mg PO DAILY 10/22/23 10/22/23 Unknown History folic acid 1 mg tablet 1 mg PO DAILY 10/22/23 10/22/23 Unknown History metoprolol succinate 25 mg 25 mg PO DAILY 10/22/23 10/22/23 Unknown History tablet,extended release 24 hr Physical Exam Vital Signs and Narrative: Vital Signs: Last Vital Signs Temp 98.8 F 10/21/23 19:16 Pulse 68 10/21/23 19:16 Resp 17 10/21/23 19:16 BP 157/65 H 10/21/23 19:16 Pulse Ox 98 10/21/23 19:16 O2 Del Method Room Air 10/21/23 19:16 BMI result Body Mass Index 17.6 General: Thin appearing female in bed. Awake and alert. In no apparent distress Eyes: No pallor or jaundice. PERRLA, EOMI HENT: Moist oral mucus membranes. No oropharyngeal lesions. Neck: Supple. No cervical adenopathy. No JVD Cardiovascular: Regular rate and rhythm. Normal heart sounds. No murmurs, rubs or gallops. No JVD. No peripheral edema. Respiratory: Normal respiratory effort with no accessory muscle use. CTAB. Gastrointestinal: Abdomen is soft, non-tender, non-distended. NABS. No hepatosplenomegaly Extremities: s/p Left BKA. No open wound. No erythema. No drainage. No edema. No calf tenderness. Good peripheral pulses Skin: Warm/Dry. No rashes. No mottling. Capillary refill is < 2 seconds Neurological: AAOx4. Intact speech & cognition. Normal gait & balance. CN II - XII grossly intact but not individually tested. No motor or sensory deficits Hematologic: No bleeding. No ecchymosis. No swollen or tender lymph nodes. Psychiatric: Cooperative. Appropriate mood and affect. Results Labs 10/21/23 15:57 10/21/23 15:57 Labs: Laboratory Results - last 24 hr 10/21/23 15:57 MCV 95.5 MCH 33.3 H MCHC 34.9 RDW 11.9 Plt Count 259 MPV 9.6 Immature Gran % (Auto) 0.4 Neut % (Auto) 60.3 Lymph % (Auto) 29.1 [place] % (Auto) 8.5 Eos % (Auto) 1.0 Baso % (Auto) 0.7 Lymph # (Auto) 3.2 [place] # (Auto) 0.9 Eos # (Auto) 0.1 Baso # (Auto) 0.1 Abs Immat Gran (auto) 0.04 H Absolute Neuts (auto) 6.7 Absolute Nucleated RBC 0.000 Nucleated RBC % (auto) 0.0 ESR 12 Anion Gap 14 Estim Creat Clear Calc 60.4 Estimated GFR > 60 Random Glucose 98 Lactic Acid 0.9 Calcium 9.3 D Magnesium 1.3 L* Total Bilirubin 0.5 AST 25 ALT 14 Alkaline Phosphatase 81 C-Reactive Protein 0.22 Total Protein 7.0 Albumin 4.1 Assessment and Plan (1) Osteomyelitis: Qualifiers: Osteomyelitis type: unspecified type Osteomyelitis location: tibia Laterality: left Qualified Code(s): M86.9 - Osteomyelitis, unspecified Status: Acute (2) Hyperlipidemia: Qualifiers: Hyperlipidemia type: unspecified Qualified Code(s): E78.5 - Hyperlipidemia, unspecified Status: Acute (3) Hypomagnesemia: Status: Acute Plan 67 year old white female with history of Peripheral vascular disease, hypertension, and hyperlipidemia here with: 1. Osteomyelitis - there is concern for OM of the amputation stump as seen on CT scan - however both her CRP and ESR are within normal limit - will defer decision to treat to the ID specialist 2. Hypokalemia - replace and recheck 3. Hypomagnesemia - replace and recheck 4. Hypertension - resume Amlodipine and Metoprolol 5. Hyperlipidemia - resume Atorvastatin Total time managing care of this patient today: 75 minutes. Quality Stroke Does the patient have a stroke diagnosis?: No VTE Prior VTE?: No VTE Risk Level:: Medical - moderate - high VTE Device Contraindication: Treatment Not Indicated VTE Drug Contraindication: N/A - Med Ordered
[2023-10-21 22:58] VITALS: BP 101/55; PULSE 69; RESP 16; O2SAT 97
--- NOTE | 2023-10-21 23:16 | PC.NURSE ---
delay in medication due to no iv pumps on ed floor
[2023-10-21 23:25] VITALS: BP 74/48; PULSE 64; O2SAT 94
[2023-10-21 23:28] VITALS: BP 105/53; PULSE 64; O2SAT 94
[2023-10-21 23:32] VITALS: BP 103/50
[2023-10-22] VITALS (8 sets, daily range): BP systolic 109–141; BP diastolic 53–66; PULSE 66–72; RESP 16–20; TEMP 36–37.2; O2SAT 95–99; BMI 17.1
[2023-10-22] MEDS: Enoxaparin Sodium 40 MG/0.4 ML SYRINGE SUBCUT ×2 (00:08→21:57)
[2023-10-22] MEDS: Potassium Chloride/H20 10 MEQ/100 ML PIGGYBACK 100 MEQ IV ×4 (00:48→03:59)
[2023-10-22] MEDS: Lactated Ringers 1,000 ML 999 ML IV (00:49)
[2023-10-22] MEDS: 0.9 % Sodium Chloride Flush 3 ML SYRINGE IVFLUSH ×3 (00:49→16:32)
[2023-10-22 07:09] LABS: MANUAL DIFF FLAG NO
[2023-10-22 07:23] LABS: Basophils Absolute Auto 0.1 X10*3/uL (0.0-0.2); Basophils Percent Auto 1.1 % (0-2); Eosinophils Absolute Auto 0.3 X10*3/uL (0.0-0.4); Eosinophils Percent Auto 3.8 % (0-4); Hemoglobin 11.7 g/dl (12.0-16.0); Imm Gran Abs Auto 0.01 X10*3/uL (0.00-0.03); Imm Gran Pct Auto 0.1 % (0.0-0.4); Lymphocytes Absolute Auto 2.7 X10*3/uL (1.2-4.9); Lymphocytes Percent Auto 37.5 % (20-40); Mean Corpuscular HGB Conc 35.5 g/dl (31.0-35.0); Mean Corpuscular Hemoglobin 34.5 pg (27.0-33.0); Mean Corpuscular Volume 97.3 fL (80.0-98.0); Monocytes Absolute Auto 0.7 X10*3/uL (0.1-1.2); Monocytes Percent Auto 9.9 % (2-11); Neutrophils Absolute Auto 3.4 x10*3/uL (2.0-8.3); Neutrophils Percent Auto 47.6 % (45-73); Platelet Count 216 X10*3/uL (160-400); Red Blood Count 3.39 X10*6/uL (4.20-5.50); Red Cell Distribution Width 11.9 % (11.0-16.0); White Blood Count 7.1 X10*3/uL (4.8-10.8)
--- NOTE | 2023-10-22 08:10 | PHA.PROG ---
Admission Date/Time: October 21, 2023 22:49 Indication: SKIN & STRUCTURE (QUESTION OF OSTEO?) Weight in k.3 kg Adjusted body weight in K.98 [place] body weight in K.1 Obesity Dosing Indication % IBW:NA Serum Creatinine - Last 168 Hours 10/21/23 15:57 Creatinine 0.63 Estimated CrCl and GFR - Last 168 Hours 10/21/23 15:57 Estim Creat Clear Calc 60.4 Estimated GFR > 60 Vancomycin Loading Dose: 1000 MG Current Vancomycin Dosing Regimen: 750 Q12 Vancomycin Monitoring using AUC goal of 400 - 600 range with trough as surrogate marker: 580 (TROUGH 18.1) Date and Time for next Vancomycin Level to be drawn:10/23 @0900 Pharmacist Comments on Vancomycin Plan: APPROPRIATE LOAD GIVEN IN ED. CAREFUL MONITORING OF RENAL FUNCTION AND VANCO LEVELS DUE TO AGE >65 AND PT SMALL SIZE. Vancomycin dosing will take advantage of [employer] as a clinical decision support tool that uses Bayesian modeling to calculate individual patient's pharmacokinetic parameters and forecast the patient's drug concentration time course with the target goal AUC 24 range of 400 - 600 mg/L/hr.
[2023-10-22 08:17] LABS: Anion Gap 13 (12-20); Blood Urea Nitrogen 3 mg/dL (9-16); Calcium 8.6 mg/dL (8.4-10.2); Carbon Dioxide 25 mmol/L (22-29); Chloride 107 mmol/L (96-108); Creatinine Clr Calc Pharmacy 63.7; Estimated Glomerular Filt Rate > 60; Glucose Random 90 mg/dL (60-115); Magnesium 1.7 mg/dL (1.6-2.6); Potassium 3.8 mmol/L (3.3-5.1); Sodium 141 mmol/L (135-145); Thyroid Stimulating Hormone 2.01 uIU/mL (0.32-4.0)
[2023-10-22] MEDS: amLODIPine Besylate 5 MG TABLET PO (08:40)
[2023-10-22] MEDS: Aspirin 81 MG TAB.CHEW 162 MG PO (08:41)
[2023-10-22] MEDS: Metoprolol Succinate ER 25 MG TAB.ER.24H PO (08:41)
[2023-10-22] MEDS: Folic Acid 1 MG TABLET PO (08:41)
[2023-10-22] MEDS: Atorvastatin Calcium 40 MG TABLET PO (08:41)
[2023-10-22] MEDS: Clopidogrel Bisulfate 75 MG TABLET PO (08:41)
[2023-10-22] MEDS: vancomycin HCL 750 MG in 0.9 % Sodium Chloride 250 ML 265 MG IV ×2 (10:24→21:56)
--- NOTE | 2023-10-22 10:27 | HO.PM.IMPN ---
Subjective Subjective Date of Service: 10/22/23 Interval History: concern for Osteomyelitis of left BKA Review of Systems no pain or erythema Physical Exam Vital Signs: Vital Signs: Last Vital Signs Temp 98.0 F 10/22/23 07:41 Pulse 66 10/22/23 07:41 Resp 18 10/22/23 07:41 BP 141/64 H 10/22/23 07:41 Pulse Ox 95 10/22/23 07:41 O2 Del Method Room Air 10/22/23 07:41 BMI result Body Mass Index 17.1 Appearance: Alert.? Oriented X3.? Eyes: Pupils equal, round and reactive to light.? Sclera nonicteric.? ENT: Pharynx normal.? Moist mucous membranes. cvs: rrr, [id number] . res: clear to auscultation ,no rhonchii or wheezing abd: no rebound or guarding ,nt, bs present. ext : s/p left aka neuro: axo3 , nonfocal. Objective Data Active Medications Acetaminophen (Acetaminophen 325 Mg Tablet) 650 mg PO Q6H PRN PRN Reason: Pain, Mild (Pain Scale 1-3) Al Hydroxide/Mg Hydroxide (Magnesium Hydrox/Alum Hydrox 30 Ml Oral.Susp) 30 ml PO Q4H PRN PRN Reason: Heartburn/Nausea Amlodipine Besylate (Amlodipine Besylate 5 Mg Tablet) 5 mg PO DAILY [facility]; Protocol Last Admin: 10/22/23 08:40 Dose: 5 mg Documented By: CHAMP Amlodipine Besylate (Amlodipine Besylate 5 Mg Tablet) 5 mg PO DAILY [facility]; Protocol Aspirin (Aspirin 81 Mg Tab.Chew) 162 mg PO DAILY [facility] Last Admin: 10/22/23 08:41 Dose: 162 mg Documented By: CHAMP Atorvastatin Calcium (Atorvastatin Calcium 40 Mg Tablet) 40 mg PO DAILY [facility] Last Admin: 10/22/23 08:41 Dose: 40 mg Documented By: CHAMP Atorvastatin Calcium (Atorvastatin Calcium 40 Mg Tablet) 40 mg PO DAILY [facility] Clopidogrel Bisulfate (Clopidogrel Bisulfate 75 Mg Tablet) 75 mg PO DAILY [facility] Last Admin: 10/22/23 08:41 Dose: 75 mg Documented By: CHAMP Clopidogrel Bisulfate (Clopidogrel Bisulfate 75 Mg Tablet) 75 mg PO DAILY [facility] Docusate Sodium (Docusate Sodium 100 Mg Capsule) 100 mg PO BID [facility] Last Admin: 10/22/23 08:41 Dose: Not Given Documented By: CHAMP Non-Admin Reason: Patient Refused Enoxaparin Sodium (Enoxaparin Sodium 40 Mg/0.4 Ml Syringe) 40 mg SUBCUT Q24H [facility] Last Admin: 10/22/23 00:08 Dose: 40 mg Documented By: JENNIFER Folic Acid (Folic Acid 1 Mg Tablet) 1 mg PO DAILY [facility] Last Admin: 10/22/23 08:41 Dose: 1 mg Documented By: CHAMP Folic Acid (Folic Acid 1 Mg Tablet) 1 mg PO DAILY [facility] Vancomycin HCl 750 mg/ Sodium (Chloride) 265 mls @ 265 mls/hr IV Q12H [facility] Last Admin: 10/22/23 10:24 Dose: 265 mls/hr Documented By: CHAMP Melatonin (Melatonin 3 Mg Tablet) 6 mg PO BEDTIME PRN PRN Reason: Insomnia Metoprolol Succinate (Metoprolol Succinate Er 25 Mg Tab.Er.24h) 25 mg PO DAILY [facility]; Protocol Last Admin: 10/22/23 08:41 Dose: 25 mg Documented By: CHAMP Metoprolol Succinate (Metoprolol Succinate Er 25 Mg Tab.Er.24h) 25 mg PO DAILY [facility]; Protocol Ondansetron HCl (Ondansetron Hcl 4 Mg/2 Ml Vial) 4 mg IVPUSH Q8H PRN PRN Reason: Nausea and Vomiting Pharmacy Consult (Consult Rx Vancomycin Dosing) 1 each MISCELLANE DAILY PRN PRN Reason: Consult order Senna (Sennosides 8.6 Mg Tablet) 17.2 mg PO BEDTIME PRN PRN Reason: Constipation Sodium Chloride (0.9 % Sodium Chloride Flush 3 Ml Syringe) 3 ml IVFLUSH QSHIFT [facility] Last Admin: 10/22/23 08:44 Dose: 3 ml Documented By: CHAMP Labs 10/22/23 05:47 10/22/23 05:47 Labs: Laboratory Results - last 24 hr 10/21/23 10/22/23 15:57 05:47 MCV 95.5 97.3 MCH 33.3 H 34.5 H MCHC 34.9 35.5 H RDW 11.9 11.9 Plt Count 259 216 MPV 9.6 10.0 Immature Gran % (Auto) 0.4 0.1 Neut % (Auto) 60.3 47.6 Lymph % (Auto) 29.1 37.5 [place] % (Auto) 8.5 9.9 Eos % (Auto) 1.0 3.8 Baso % (Auto) 0.7 1.1 Lymph # (Auto) 3.2 2.7 [place] # (Auto) 0.9 0.7 Eos # (Auto) 0.1 0.3 Baso # (Auto) 0.1 0.1 Abs Immat Gran (auto) 0.04 H 0.01 Absolute Neuts (auto) 6.7 3.4 Absolute Nucleated RBC 0.000 0.000 Nucleated RBC % (auto) 0.0 0.0 ESR 12 Anion Gap 14 13 Estim Creat Clear Calc 60.4 63.7 Estimated GFR > 60 > 60 Random Glucose 98 90 Lactic Acid 0.9 Calcium 9.3 D 8.6 D Magnesium 1.3 L* 1.7 Total Bilirubin 0.5 AST 25 ALT 14 Alkaline Phosphatase 81 C-Reactive Protein 0.22 Total Protein 7.0 Albumin 4.1 TSH 2.01 Assessment and Plan (1) Osteomyelitis: Status: Acute (2) Hypomagnesemia: Status: Acute Plan 67 year old white female with history of Peripheral vascular disease, hypertension, and hyperlipidemia here with: 1.concern for possible acute Osteomyelitis - there is concern for OM of the amputation stump as seen on CT scan - however both her CRP and ESR are within normal limit - will defer decision to treat to the ID specialist 2. Hypokalemia - replace and recheck 3. Hypomagnesemia - replace and recheck 4. Hypertension - resume Amlodipine and Metoprolol 5. Hyperlipidemia - resume Atorvastatin 6. PVD: continue asa ,plavix,statin Ongoing hopitlisation need : Need close monitoring of electrolytes, replacements of electrolytes due to multiple electrolytic abnormalities, concern for possible acute Osteomyelitis-need iv antibiotics ,further workup ,expert consultation . Quality Stroke Does the patient have a stroke diagnosis?: No VTE Prior VTE?: No VTE Risk Level:: Medical - moderate - high VTE Device Contraindication: Treatment Not Indicated VTE Drug Contraindication: N/A - Med Ordered
--- NOTE | 2023-10-22 14:54 | MHC.CM.PN ---
Addendum entered by Milagros Calvin 10/23/23 11:41: CM INFORMED PT WILL NEED LT IV ABX REFERRALS ARE OUT Original Note: CM MET WITH PT AND SON, GERBER, AT BEDSIDE PT LIVES ALONE AND IS INDEPENDENT WITH SELF CARE [facility] IS INVOLVED AND PROVIDES 2X/WEEK HOUSEKEEPING PT HAS A CANE, W/C, AND LE PROSTHETIC PT COMPLETED A NEW HCP TODAY NAMING HER SON GERBER HER PRIMARY AGENT PCP: LATONIA FLOREZ IMM DELIVERED DCP TBD PENDING ID CONSULT PT STATES SHE WANTS TO DC HOME, HOWEVER SHE HAS NO ONE PRESENT TO ASSIST WITH IV ABX IF REQUIRED HER CLOSEST SON LIVES 2 HOURS AWAY
[2023-10-22] MEDS: Melatonin 3 MG TABLET 6 MG PO (22:05)
[2023-10-23] MEDS: 0.9 % Sodium Chloride Flush 3 ML SYRINGE IVFLUSH ×3 (00:27→16:24)
[2023-10-23 04:00] VITALS: BP 99/58; PULSE 70; RESP 18; TEMP 36.1; O2SAT 97
[2023-10-23 05:58] LABS: Creatinine Clr Calc Pharmacy 61.5; Estimated Glomerular Filt Rate > 60
[2023-10-23 07:31] VITALS: BP 108/58; PULSE 71; RESP 18; TEMP 36.8; O2SAT 97
[2023-10-23] MEDS: Clopidogrel Bisulfate 75 MG TABLET PO (09:36)
[2023-10-23] MEDS: amLODIPine Besylate 5 MG TABLET PO (09:36)
[2023-10-23] MEDS: Metoprolol Succinate ER 25 MG TAB.ER.24H PO (09:36)
[2023-10-23] MEDS: Aspirin 81 MG TAB.CHEW 162 MG PO (09:36)
[2023-10-23] MEDS: Atorvastatin Calcium 40 MG TABLET PO (09:37)
[2023-10-23] MEDS: Folic Acid 1 MG TABLET PO (09:37)
[2023-10-23 09:41] LABS: Vancomycin Trough 12.5 mcg/mL (10.0-20.0)
--- NOTE | 2023-10-23 10:27 | HE.PHANOTE ---
RE VANCO DOSING SCR STABLE AND TROUGH 12.5. WILL CONTINUE ON CURRENT DOSE AND RECHECK LEVEL 10/24 @0900. EXPECTED TROUGH IS 15 AT THAT TIME. MAY STILL NEED TO INCREASE DOSE TO ENSURE ADEQUATE COVERAGE FOR SUSPECTED OSTEO.
[2023-10-23] MEDS: vancomycin HCL 750 MG in 0.9 % Sodium Chloride 250 ML 265 MG IV ×2 (11:21→23:33)
[2023-10-23 11:37] VITALS: BP 142/65; PULSE 65; RESP 18; TEMP 36.6; O2SAT 96
--- NOTE | 2023-10-23 12:50 | P.PNIM_ITS ---
Subjective Subjective Date of Service: 10/24/23 Interval History: concern for Osteomyelitis of left BKA Review of Systems no pain or erythema Physical Exam 2 Vital Signs: Vital Signs: Last Vital Signs Temp 97.9 F 10/23/23 11:37 Pulse 65 10/23/23 11:37 Resp 18 10/23/23 11:37 BP 142/65 H 10/23/23 11:37 Pulse Ox 96 10/23/23 11:37 O2 Del Method Room Air 10/23/23 11:37 BMI result Body Mass Index 17.1 Appearance: Alert.? Oriented X3.? Eyes: Pupils equal, round and reactive to light.? Sclera nonicteric.? ENT: Pharynx normal.? Moist mucous membranes. cvs: rrr, [id number] . res: clear to auscultation ,no rhonchii or wheezing abd: no rebound or guarding ,nt, bs present. ext : s/p left aka neuro: axo3 , nonfocal. Objective Data Active Medications Acetaminophen (Acetaminophen 325 Mg Tablet) 650 mg PO Q6H PRN PRN Reason: Pain, Mild (Pain Scale 1-3) Al Hydroxide/Mg Hydroxide (Magnesium Hydrox/Alum Hydrox 30 Ml Oral.Susp) 30 ml PO Q4H PRN PRN Reason: Heartburn/Nausea Amlodipine Besylate (Amlodipine Besylate 5 Mg Tablet) 5 mg PO DAILY [facility]; Protocol Last Admin: 10/23/23 09:36 Dose: 5 mg Documented By: CHAMP Aspirin (Aspirin 81 Mg Tab.Chew) 162 mg PO DAILY [facility] Last Admin: 10/23/23 09:36 Dose: 162 mg Documented By: CHAMP Atorvastatin Calcium (Atorvastatin Calcium 40 Mg Tablet) 40 mg PO DAILY [facility] Last Admin: 10/23/23 09:37 Dose: 40 mg Documented By: CHAMP Clopidogrel Bisulfate (Clopidogrel Bisulfate 75 Mg Tablet) 75 mg PO DAILY [facility] Last Admin: 10/23/23 09:36 Dose: 75 mg Documented By: CHAMP Docusate Sodium (Docusate Sodium 100 Mg Capsule) 100 mg PO BID [facility] Last Admin: 10/23/23 09:37 Dose: Not Given Documented By: CHAMP Non-Admin Reason: Patient Refused Enoxaparin Sodium (Enoxaparin Sodium 40 Mg/0.4 Ml Syringe) 40 mg SUBCUT Q24H [facility] Last Admin: 10/22/23 21:57 Dose: 40 mg Documented By: TAL Folic Acid (Folic Acid 1 Mg Tablet) 1 mg PO DAILY [facility] Last Admin: 10/23/23 09:37 Dose: 1 mg Documented By: CHAMP Vancomycin HCl 750 mg/ Sodium (Chloride) 265 mls @ 265 mls/hr IV Q12H [facility] Last Infusion: 10/23/23 12:25 Dose: Infused Documented By: CHAMP Melatonin (Melatonin 3 Mg Tablet) 6 mg PO BEDTIME PRN PRN Reason: Insomnia Last Admin: 10/22/23 22:05 Dose: 6 mg Documented By: TAL Metoprolol Succinate (Metoprolol Succinate Er 25 Mg Tab.Er.24h) 25 mg PO DAILY [facility]; Protocol Last Admin: 10/23/23 09:36 Dose: 25 mg Documented By: CHAMP Ondansetron HCl (Ondansetron Hcl 4 Mg/2 Ml Vial) 4 mg IVPUSH Q8H PRN PRN Reason: Nausea and Vomiting Pharmacy Consult (Consult Rx Vancomycin Dosing) 1 each MISCELLANE DAILY PRN PRN Reason: Consult order Senna (Sennosides 8.6 Mg Tablet) 17.2 mg PO BEDTIME PRN PRN Reason: Constipation Sodium Chloride (0.9 % Sodium Chloride Flush 3 Ml Syringe) 3 ml IVFLUSH QSHIFT [facility] Last Admin: 10/23/23 09:37 Dose: 3 ml Documented By: CHAMP Labs 10/22/23 05:47 10/24/23 05:47 Labs: Laboratory Results - last 24 hr 10/23/23 10/23/23 05:12 09:08 Hold Purple Top SEE NOTE Estim Creat Clear Calc 61.5 Estimated GFR > 60 Vancomycin Trough 12.5 Microbiology Microbiology Results: Microbiology 10/21/23 20:41 Blood Culture - Preliminary Blood - Venous No growth after 24 hours. 10/21/23 15:57 Blood Culture - Preliminary Blood - Venous No growth after 24 hours. Assessment and Plan (1) Osteomyelitis: Status: Acute (2) Hypomagnesemia: Status: Acute Plan 67 year old white female with history of Peripheral vascular disease, hypertension, and hyperlipidemia here with: 1.concern for possible acute Osteomyelitis - there is concern for OM of the amputation stump as seen on CT scan - however both her CRP and ESR are within normal limit Id eval -plan for iv antibiotics ,need picc line ordered . 2. Hypokalemia - repleted ,resolved. 3. Hypomagnesemia - repleted ,resolved. 4. Hypertension continue Amlodipine and Metoprolol 5. Hyperlipidemia- resume Atorvastatin 6. PVD: continue asa ,plavix,statin Ongoing hopitlisation need : Need close monitoring of electrolytes, replacements of electrolytes due to multiple electrolytic abnormalities, concern for possible acute Osteomyelitis-need iv antibiotics ,further workup ,expert consultation . Quality Stroke Does the patient have a stroke diagnosis?: No VTE Prior VTE?: No VTE Risk Level:: Medical - moderate - high VTE Device Contraindication: Treatment Not Indicated VTE Drug Contraindication: N/A - Med Ordered
[2023-10-23 15:03] VITALS: BP 145/53; PULSE 68; RESP 18; TEMP 36.5; O2SAT 98
[2023-10-23] MEDS: Acetaminophen 325 MG TABLET 650 MG PO (16:27)
[2023-10-23 19:11] VITALS: BP 105/51; PULSE 76; RESP 18; TEMP 36.7; O2SAT 98
--- NOTE | 2023-10-23 23:18 | P.CNID_ITS ---
History of Present Illness Data of Consult Service Date: 10/22/23 Requesting physician: Dayami Delgadillo Primary Care Provider: Juli Voss MD HPI Reason for consult: left stump OM She presents to ER after seeing me in office for oozing ,clear serous drainage from wound with left erythema to stump area. She had prior BKA about six years ago. SHe said walked with prosthetic and had oozing opened area at femur. She had no fever or chills. Review of Systems 2 Review of Systems: Yes all other systems are reviewed and are negative [facility] Past Medical History Medical History Hypokalemia CVA (cerebral vascular accident) PVD (peripheral vascular disease) On beta angel at home Peripheral artery disease Carotid artery stenosis GERD (gastroesophageal reflux disease) Hyperlipidemia Hypertension Family History Family History Father Medical history unknown Mother Medical history unknown Family history: reviewed and not pertinent Surgical History Surgical History H/O colonoscopy Hx of blood clots Status post femoropopliteal bypass surgery S/P BKA (below knee amputation) Social History Social History Household Members: None Housing: House Do you presently have visiting nurse or other home services: Yes Patient Tobacco Use Status: Former Tobacco user Years Smoked: 30 Smoked in Last 30 Days: Yes Second Hand Smoke Exposure: No Use of substances other than those prescribed or required for medical reasons: No Currently Displaying Signs/Symptoms of Drug Intoxication Withdrawal: No Have you been hit, kicked, punched, or otherwise hurt by someone within the past year? If so, by whom?: No Do you feel safe in your current relationship?: No Current Relationship Is there a partner from a previous relationship who is making you feel unsafe now?: No Are you made to feel afraid or neglected: No Advance Directives: No Advance Directives Information Provided: No Do you have thoughts of harming others: None Do you have a plan to hurt others: No Plan Recently lost weight without trying: No Eating poorly because of decreased appetite: No Nutrition Risks: No Nutritional Risk Patient : No : No Poor oral hygiene: No service: No Cognitive needs: Yes (cane) Hearing needs: No Vision needs: Yes (glasses) Meds Allergies Allergy/AdvReac Type Severity Reaction Status Date / Time Penicillins [PENICILLINS] Allergy Severe ANAPHYLAXIS Verified 10/21/23 15:31 penicillamine Allergy Unknown Anaphylaxis Verified 10/21/23 15:31 Active Medications: Current Medications Acetaminophen (Acetaminophen 325 Mg Tablet) 650 mg PO Q6H PRN PRN Reason: Pain, Mild (Pain Scale 1-3) Last Admin: 10/23/23 16:27 Dose: 650 mg Al Hydroxide/Mg Hydroxide (Magnesium Hydrox/Alum Hydrox 30 Ml Oral.Susp) 30 ml PO Q4H PRN PRN Reason: Heartburn/Nausea Amlodipine Besylate (Amlodipine Besylate 5 Mg Tablet) 5 mg PO DAILY [facility]; Protocol Last Admin: 10/23/23 09:36 Dose: 5 mg Aspirin (Aspirin 81 Mg Tab.Chew) 162 mg PO DAILY [facility] Last Admin: 10/23/23 09:36 Dose: 162 mg Atorvastatin Calcium (Atorvastatin Calcium 40 Mg Tablet) 40 mg PO DAILY [facility] Last Admin: 10/23/23 09:37 Dose: 40 mg Clopidogrel Bisulfate (Clopidogrel Bisulfate 75 Mg Tablet) 75 mg PO DAILY [facility] Last Admin: 10/23/23 09:36 Dose: 75 mg Docusate Sodium (Docusate Sodium 100 Mg Capsule) 100 mg PO BID [facility] Last Admin: 10/23/23 09:37 Dose: Not Given Enoxaparin Sodium (Enoxaparin Sodium 40 Mg/0.4 Ml Syringe) 40 mg SUBCUT Q24H [facility] Last Admin: 10/22/23 21:57 Dose: 40 mg Folic Acid (Folic Acid 1 Mg Tablet) 1 mg PO DAILY [facility] Last Admin: 10/23/23 09:37 Dose: 1 mg Vancomycin HCl 750 mg/ Sodium (Chloride) 265 mls @ 265 mls/hr IV Q12H [facility] Last Infusion: 10/23/23 12:25 Dose: Infused Melatonin (Melatonin 3 Mg Tablet) 6 mg PO BEDTIME PRN PRN Reason: Insomnia Last Admin: 10/22/23 22:05 Dose: 6 mg Metoprolol Succinate (Metoprolol Succinate Er 25 Mg Tab.Er.24h) 25 mg PO DAILY [facility]; Protocol Last Admin: 10/23/23 09:36 Dose: 25 mg Ondansetron HCl (Ondansetron Hcl 4 Mg/2 Ml Vial) 4 mg IVPUSH Q8H PRN PRN Reason: Nausea and Vomiting Pharmacy Consult (Consult Rx Vancomycin Dosing) 1 each MISCELLANE DAILY PRN PRN Reason: Consult order Senna (Sennosides 8.6 Mg Tablet) 17.2 mg PO BEDTIME PRN PRN Reason: Constipation Sodium Chloride (0.9 % Sodium Chloride Flush 3 Ml Syringe) 3 ml [facility] [place] [place] Last Admin: 10/23/23 16:24 Dose: 3 ml Home Medications Medication Instructions Recorded Confirmed Last Taken Type aspirin 81 mg chewable tablet 2 tab PO DAILY 08/19/20 10/21/23 10/21/23 History amlodipine 5 mg tablet 5 mg PO DAILY 10/22/23 10/22/23 Unknown History atorvastatin 40 mg tablet 40 mg PO DAILY 10/22/23 10/22/23 Unknown History clopidogrel 75 mg tablet 75 mg PO DAILY 10/22/23 10/22/23 Unknown History folic acid 1 mg tablet 1 mg PO DAILY 10/22/23 10/22/23 Unknown History metoprolol succinate 25 mg 25 mg PO DAILY 10/22/23 10/22/23 Unknown History tablet,extended release 24 hr Physical Exam 2 Vital Signs: Vital Signs: Last Vital Signs Temp 98.1 F 10/23/23 19:11 Pulse 76 10/23/23 19:11 Resp 18 10/23/23 19:11 BP 105/51 L 10/23/23 19:11 Pulse Ox 98 10/23/23 19:11 O2 Del Method Room Air 10/23/23 19:11 BMI result Body Mass Index 17.1 Const: General: cooperative HEENT: Head: Yes normal to inspection Face and sinus: Yes normal facial exam Mouth: Normal oral and palatal mucosa present Teeth and gingiva: d entition normal Eyes: General: appearance normal, both eyes and all related structures P upils: Equal, round and reactive pupils present Resp: Effort & Inspection: normal respiratory effort Cardio: Rate: regular rate Rhythm: regular rhythm GI: Palpation (GI): Soft to palpation and nontender : General: Yes no CVA tenderness Back/Spine/Pelvis: Back: no CVA tenderness Skin: General skin exam: no rashes or lesions noted Neuro: General: moves all extremities Cranial nerves: Yes Equal, round and reactive pupils present Extrem: Other: clear drainage open femur cellulitis Psych: Appearance: grossly normal Results Labs 10/22/23 05:47 10/23/23 05:12 Labs: BMP 10/23/23 05:12 Creatinine 0.60 Microbiology Microbiology Results: Microbiology 10/21/23 20:41 Blood - Venous Blood Culture - Preliminary No growth after 48 hours. 10/21/23 15:57 Blood - Venous Blood Culture - Preliminary No growth after 48 hours. Assessment and Plan (1) Osteomyelitis: Qualifiers: Laterality: left Osteomyelitis location: tibia Osteomyelitis type: u nspecified type Qualified Code(s): M86.9 - Osteomyelitis, unspecified Status: Acute She has OM left femur. Area has clear drainage. There is possible staph or strep Plan Blood cultures Six weeks IV antibiotics Possible Vancomycin or Daptomycin. If able culture bone but doubtful (see Dr Bustamante).
[2023-10-23] MEDS: Enoxaparin Sodium 40 MG/0.4 ML SYRINGE SUBCUT (23:35)
[2023-10-23] MEDS: Melatonin 3 MG TABLET 6 MG PO (23:35)
[2023-10-24] VITALS (8 sets, daily range): BP systolic 102–137; BP diastolic 55–69; PULSE 62–86; RESP 16–18; TEMP 36.1–36.7; O2SAT 95–98; BMI 17.1
[2023-10-24 06:37] LABS: Creatinine Clr Calc Pharmacy 64.8; Estimated Glomerular Filt Rate > 60
[2023-10-24] MEDS: amLODIPine Besylate 5 MG TABLET PO (08:50)
[2023-10-24] MEDS: Metoprolol Succinate ER 25 MG TAB.ER.24H PO (08:50)
[2023-10-24] MEDS: Atorvastatin Calcium 40 MG TABLET PO (08:50)
[2023-10-24] MEDS: Clopidogrel Bisulfate 75 MG TABLET PO (08:50)
[2023-10-24] MEDS: Aspirin 81 MG TAB.CHEW 162 MG PO (08:50)
[2023-10-24] MEDS: Folic Acid 1 MG TABLET PO (08:50)
[2023-10-24] MEDS: 0.9 % Sodium Chloride Flush 3 ML SYRINGE IVFLUSH ×3 (08:54→23:39)
[2023-10-24 09:35] LABS: Vancomycin Random 15.5 mcg/mL (15-20)
[2023-10-24] MEDS: vancomycin HCL 750 MG in 0.9 % Sodium Chloride 250 ML 265 MG IV ×2 (10:32→22:39)
--- NOTE | 2023-10-24 13:46 | P.PNIM_ITS ---
Subjective Subjective Date of Service: 10/24/23 Interval History: concern for Osteomyelitis of left BKA Review of Systems no pain or erythema Physical Exam 2 Vital Signs: Vital Signs: Last Vital Signs Temp 97.6 F 10/24/23 07:52 Pulse 66 10/24/23 09:52 Resp 16 10/24/23 07:52 BP 111/69 10/24/23 09:52 Pulse Ox 97 10/24/23 09:52 O2 Del Method Room Air 10/24/23 07:52 BMI result Body Mass Index 17.1 Appearance: Alert.? Oriented X3.? Eyes: Pupils equal, round and reactive to light.? Sclera nonicteric.? ENT: Pharynx normal.? Moist mucous membranes. cvs: rrr, [id number] . res: clear to auscultation ,no rhonchii or wheezing abd: no rebound or guarding ,nt, bs present. ext : s/p left aka neuro: axo3 , nonfocal. Objective Data Active Medications Acetaminophen (Acetaminophen 325 Mg Tablet) 650 mg PO Q6H PRN PRN Reason: Pain, Mild (Pain Scale 1-3) Last Admin: 10/23/23 16:27 Dose: 650 mg Documented By: TRUONG Al Hydroxide/Mg Hydroxide (Magnesium Hydrox/Alum Hydrox 30 Ml Oral.Susp) 30 ml PO Q4H PRN PRN Reason: Heartburn/Nausea Amlodipine Besylate (Amlodipine Besylate 5 Mg Tablet) 5 mg PO DAILY [facility]; Protocol Last Admin: 10/24/23 08:50 Dose: 5 mg Documented By: ELVIA Aspirin (Aspirin 81 Mg Tab.Chew) 162 mg PO DAILY [facility] Last Admin: 10/24/23 08:50 Dose: 162 mg Documented By: ELVIA Atorvastatin Calcium (Atorvastatin Calcium 40 Mg Tablet) 40 mg PO DAILY [facility] Last Admin: 10/24/23 08:50 Dose: 40 mg Documented By: ELVIA Clopidogrel Bisulfate (Clopidogrel Bisulfate 75 Mg Tablet) 75 mg PO DAILY [facility] Last Admin: 10/24/23 08:50 Dose: 75 mg Documented By: ELVIA Docusate Sodium (Docusate Sodium 100 Mg Capsule) 100 mg PO BID [facility] Last Admin: 10/24/23 08:54 Dose: Not Given Documented By: ELVIA Non-Admin Reason: Patient Refused Enoxaparin Sodium (Enoxaparin Sodium 40 Mg/0.4 Ml Syringe) 40 mg SUBCUT Q24H [facility] Last Admin: 10/23/23 23:35 Dose: 40 mg Documented By: DANG Folic Acid (Folic Acid 1 Mg Tablet) 1 mg PO DAILY [facility] Last Admin: 10/24/23 08:50 Dose: 1 mg Documented By: ELVIA Vancomycin HCl 750 mg/ Sodium (Chloride) 265 mls @ 265 mls/hr IV Q12H [facility] Last Infusion: 10/24/23 11:38 Dose: Infused Documented By: ELVIA Melatonin (Melatonin 3 Mg Tablet) 6 mg PO BEDTIME PRN PRN Reason: Insomnia Last Admin: 10/23/23 23:35 Dose: 6 mg Documented By: DANG Metoprolol Succinate (Metoprolol Succinate Er 25 Mg Tab.Er.24h) 25 mg PO DAILY [facility]; Protocol Last Admin: 10/24/23 08:50 Dose: 25 mg Documented By: ELVIA Ondansetron HCl (Ondansetron Hcl 4 Mg/2 Ml Vial) 4 mg IVPUSH Q8H PRN PRN Reason: Nausea and Vomiting Pharmacy Consult (Consult Rx Vancomycin Dosing) 1 each MISCELLANE DAILY PRN PRN Reason: Consult order Senna (Sennosides 8.6 Mg Tablet) 17.2 mg PO BEDTIME PRN PRN Reason: Constipation Sodium Chloride (0.9 % Sodium Chloride Flush 3 Ml Syringe) 3 ml IVFLUSH QSHIFT [facility] Last Admin: 10/24/23 08:54 Dose: 3 ml Documented By: ELVIA Labs 10/22/23 05:47 10/24/23 05:47 Labs: Laboratory Results - last 24 hr 10/24/23 10/24/23 05:47 09:02 Hold Purple Top SEE NOTE Estim Creat Clear Calc 64.8 Estimated GFR > 60 Random Vancomycin 15.5 Microbiology Microbiology Results: Microbiology 10/21/23 20:41 Blood Culture - Preliminary Blood - Venous No growth after 48 hours. 10/21/23 15:57 Blood Culture - Preliminary Blood - Venous No growth after 48 hours. Assessment and Plan (1) Osteomyelitis: Status: Acute Plan 67 year old white female with history of Peripheral vascular disease, hypertension, and hyperlipidemia here with: concern for possible acute Osteomyelitis there is concern for OM of the amputation stump as seen on CT scan however both her CRP and ESR are within normal limit blood cultures negative@48hrs plan for iv antibiotics(on vanco since 10/21/23) ,need picc line ordered . ID rec are:Six weeks IV antibiotics,Possible Vancomycin or Daptomycin.If able culture bone but doubtful (see Dr Bustamante) . Hypokalemia and Hypomagnesemia repleted ,resolved. Hypertension:continue Amlodipine and Metoprolol Hyperlipidemia- resume Atorvastatin PVD: continue asa ,plavix,statin Ongoing hopitlisation need : Need close monitoring of electrolytes, replacements of electrolytes due to multiple electrolytic abnormalities, concern for possible acute Osteomyelitis-need iv antibiotics ,further workup ,need picc line . Quality Stroke Does the patient have a stroke diagnosis?: No VTE Prior VTE?: No VTE Risk Level:: Medical - moderate - high VTE Device Contraindication: Treatment Not Indicated VTE Drug Contraindication: N/A - Med Ordered
[2023-10-24] MEDS: Melatonin 3 MG TABLET 6 MG PO (20:38)
[2023-10-24] MEDS: Enoxaparin Sodium 40 MG/0.4 ML SYRINGE SUBCUT (22:39)
[2023-10-25 03:19] VITALS: BP 123/60; PULSE 69; RESP 16; TEMP 36.2; O2SAT 98
[2023-10-25 07:28] VITALS: BP 134/62; PULSE 68; RESP 20; TEMP 36.6; O2SAT 96
[2023-10-25 07:47] LABS: Creatinine Clr Calc Pharmacy 62.6; Estimated Glomerular Filt Rate > 60
[2023-10-25] MEDS: Folic Acid 1 MG TABLET PO (08:42)
[2023-10-25] MEDS: Clopidogrel Bisulfate 75 MG TABLET PO (08:43)
[2023-10-25] MEDS: amLODIPine Besylate 5 MG TABLET PO (08:43)
[2023-10-25] MEDS: Aspirin 81 MG TAB.CHEW 162 MG PO (08:43)
[2023-10-25] MEDS: Metoprolol Succinate ER 25 MG TAB.ER.24H PO (08:43)
[2023-10-25] MEDS: Atorvastatin Calcium 40 MG TABLET PO (08:43)
[2023-10-25] MEDS: 0.9 % Sodium Chloride Flush 3 ML SYRINGE IVFLUSH (08:43)
--- NOTE | 2023-10-25 12:32 | HO.PICC ---
PICC Line Insertion NPICC Diagnosi: OSTEO LEFT FEMUE Indication: [employer] ANTIBX Pertinent Labs: REVIEWED Technique: Following informed consent including risks, benefits and alternatives and using sterile technique including cap and mask, sterile gown, glove and drape, the RIGHT arm was prepped and draped in the usual sterile fashion of full barrier technique with G. Following completion of [place] Protocol the skin and soft tissues were anesthetized with 1% Lidocaine plain. Using ultrasound guidance, RIGHT BASILIC vein access was obtained X1 BY RADHA LERMA RN BUT UNABLE TO PLACE PICC. CINDY RODNEY ACCESSED RIGHT BRACHIAL VEIN. Over an 0.018 wire through peel-away sheath, a 4FR SINGLE LUMEN PASV PICC line was positioned. Catheter length is 34CM internal length, 0CM external length, for a total trimmed length of 34CM. The procedure was performed in RM 272. Tip verification was performed by Ana Castillo with Sherlock 3CG. Tip located in SVC. Ultrasound was used to document vein patency and for needle entry. A formal ultrasound picture and cardiac rhythm strip was recorded. [facility] [employer] has released the line for use and it is currently dressed with a StatLock, Tegaderm, and CHG disc. Verification has been performed for blood return and line patency. Arm Circumference: 21CM Equipment: zSoup POWERPICC SOLO Catheter Type: 4FR SINGLE LUMEN PASV PICC CATHETER Lot #: [id number]
--- NOTE | 2023-10-25 13:18 | MHC.CM.PN ---
per rounds pt not ready for dc today ?needing a picc line
--- NOTE | 2023-10-25 13:35 | HO.PM.IMPN ---
Subjective Subjective Date of Service: 10/25/23 Interval History: No acute issues overnight. Single-lumen PASV PICC line placed today without incident Review of Systems Denies chest pain Denies shortness of breath Denies nausea vomiting diarrhea Denies fever chills Physical Exam Vital Signs: Vital Signs: Last Vital Signs Temp 97.8 F 10/25/23 07:28 Pulse 68 10/25/23 07:28 Resp 20 10/25/23 07:28 BP 134/62 10/25/23 07:28 Pulse Ox 96 10/25/23 07:28 O2 Del Method Room Air 10/25/23 07:28 BMI result Body Mass Index 17.1 Const: Other: Awake alert no acute issues Resp: Other: Clear to auscultation bilaterally no rales rhonchi wheezes Cardio: Other: No S4; positive S1-S2; no S3 murmurs rubs or gallops GI: Other: Soft nontender nondistended normoactive bowel sounds Extrem: Other: No edema bilaterally Objective Data Active Medications Acetaminophen (Acetaminophen 325 Mg Tablet) 650 mg PO Q6H PRN PRN Reason: Pain, Mild (Pain Scale 1-3) Last Admin: 10/23/23 16:27 Dose: 650 mg Documented By: TRUONG Al Hydroxide/Mg Hydroxide (Magnesium Hydrox/Alum Hydrox 30 Ml Oral.Susp) 30 ml PO Q4H PRN PRN Reason: Heartburn/Nausea Amlodipine Besylate (Amlodipine Besylate 5 Mg Tablet) 5 mg PO DAILY [facility]; Protocol Last Admin: 10/25/23 08:43 Dose: 5 mg Documented By: ELVIA Aspirin (Aspirin 81 Mg Tab.Chew) 162 mg PO DAILY [facility] Last Admin: 10/25/23 08:43 Dose: 162 mg Documented By: ELVIA Atorvastatin Calcium (Atorvastatin Calcium 40 Mg Tablet) 40 mg PO DAILY [facility] Last Admin: 10/25/23 08:43 Dose: 40 mg Documented By: ELVIA Clopidogrel Bisulfate (Clopidogrel Bisulfate 75 Mg Tablet) 75 mg PO DAILY [facility] Last Admin: 10/25/23 08:43 Dose: 75 mg Documented By: ELVIA Docusate Sodium (Docusate Sodium 100 Mg Capsule) 100 mg PO BID [facility] Last Admin: 10/25/23 08:45 Dose: Not Given Documented By: ELVIA Non-Admin Reason: Patient Refused Enoxaparin Sodium (Enoxaparin Sodium 40 Mg/0.4 Ml Syringe) 40 mg SUBCUT Q24H [facility] Last Admin: 10/24/23 22:39 Dose: 40 mg Documented By: CHARLES Folic Acid (Folic Acid 1 Mg Tablet) 1 mg PO DAILY [facility] Last Admin: 10/25/23 08:42 Dose: 1 mg Documented By: ELVIA Vancomycin HCl 750 mg/ Sodium (Chloride) 265 mls @ 265 mls/hr IV Q12H [facility] Melatonin (Melatonin 3 Mg Tablet) 6 mg PO BEDTIME PRN PRN Reason: Insomnia Last Admin: 10/24/23 20:38 Dose: 6 mg Documented By: CHARLES Metoprolol Succinate (Metoprolol Succinate Er 25 Mg Tab.Er.24h) 25 mg PO DAILY [facility]; Protocol Last Admin: 10/25/23 08:43 Dose: 25 mg Documented By: ELVIA Ondansetron HCl (Ondansetron Hcl 4 Mg/2 Ml Vial) 4 mg IVPUSH Q8H PRN PRN Reason: Nausea and Vomiting Pharmacy Consult (Consult Rx Vancomycin Dosing) 1 each MISCELLANE DAILY PRN PRN Reason: Consult order Senna (Sennosides 8.6 Mg Tablet) 17.2 mg PO BEDTIME PRN PRN Reason: Constipation Sodium Chloride (0.9 % Sodium Chloride Flush 3 Ml Syringe) 3 ml IVFLUSH QSHIFT [facility] Last Admin: 10/25/23 08:43 Dose: 3 ml Documented By: ELVIA Sodium Chloride (0.9 % Sodium Chloride Flush 10 Ml Syringe) 5 ml IVFLUSH TID [facility] Labs 10/22/23 05:47 10/25/23 05:39 Labs: Laboratory Results - last 24 hr 10/25/23 05:39 Hold Purple Top SEE NOTE Estim Creat Clear Calc 62.6 Estimated GFR > 60 Assessment and Plan (1) Osteomyelitis: Status: Acute (2) Hypertension: Status: Acute Plan 67 year old white female with history of Peripheral vascular disease, hypertension, and hyperlipidemia presents with drainage from left BKA 3 years remote. Initially sent to the outpatient wound clinic; seen there and sent to ER for treatment of likely osteomyelitis. CT scan highly suggestive of early osteomyelitis 1.Acute Osteomyelitis CT same highly suggestive of osteomyelitis; ID recommending treatment for same despite markers down. PICC line inserted today -as per ID will need 6 weeks of IV antibiotics; vancomycin or dapsone. Will discuss with ID -patient lives alone and will likely need placement however is not willing to consider this at this time -discuss with ID and consider options 2.Hypertension Patient has been well controlled on her outpatient regimen since admission. No acute issues related to her hypertension -acceptable control on current therapies -adjust as indicated -follow renals/divalents 3.PVD No acute issues this admission. Stable on outpatient therapies -continue all outpatient therapies Will require ongoing hospitalization to complete blood cultures and ongoing specialist consultation to determine length and nature of IV antibiotics. Given the fact the patient lives alone; will need to explore options of home administration verses the less desirable placement options Quality Stroke Does the patient have a stroke diagnosis?: No VTE Prior VTE?: No VTE Risk Level:: Medical - moderate - high VTE Device Contraindication: Treatment Not Indicated VTE Drug Contraindication: N/A - Med Ordered
[2023-10-25] MEDS: vancomycin HCL 750 MG in 0.9 % Sodium Chloride 250 ML 265 MG IV (13:37)
--- NOTE | 2023-10-25 14:18 | MHC.CM.PN ---
Addendum entered by Naya Lay RN 10/25/23 14:49: Per [facility] RN patient able to manage sufficiently manage IV abx independently. Will have oversight by [facility]. Original Note: [employer] job site superintendent and will meet with patient to provide teaching for home IV abx. Awaiting ID input for final abx.
[2023-10-25 15:16] VITALS: BP 130/58; PULSE 78; RESP 18; TEMP 36.7; O2SAT 100
--- NOTE | 2023-10-25 16:52 | HO.WOUND ---
Wound Consult: Initial 67yr old female admitted to [facility] on 10/21/23 22:49? - See progress notes and H&P for detailed history. Wound consult placed for Left Lower Residual Leg Wound - Pt states wound originated as device / prosthesis related injury after long periods of walking on vacation. She reports she has sought treatment from many doctors and her devices specialist and ultimately ended up at [facility] for concerns of Osteo. Left Leg assessed detail below. The wound bed is pinpoint opening initially no drainage noted no dressing in plce - palpated and small ooze of yellow orange clear drainage noted on Qtip / gloved finger. There is a small firm object medial to the pinpoint site - pt reports her prosthetic rep informed her it was potentially sutures migrating out - unable to assess at this time does not feel like suture but will attempt to soften dried callused tissue for better observation. Pt follows with Dr. Bustamante outpatient as well and Infectious Disease. Will follow up tomorrow to see if better visualization after softening callus / scab at wound site. Left lower residual leg Etiology: Device related Unstageable pressure Injury -?Present on Admission Measurements: 0.1cm x 0.1cm unable to probe for depth Wound Bed: unable to visualize wound bed - small firm objected palpated Drainage / Odor: yellow orange drainage when palpated - no odor no continuous ooze Edges: ? nonadherent Arely wound: no topical s/s of infection at this time - No Induration, Fluctuance or Warmth noted Pain: none Goals of Treatment: ?Attempt to soften wound bed to visualize - will follow up tomorrow. Recommendations: 1. Left Lower Residual Leg - Off Load Pressure - Protect from friction and pressure from device. Cleanse with NS, pat day. Apply xeroform, foam dressing. Change daily. Will follow up for assessment. Re-consult wound care Nurse for wound deterioration or wound changes.
[2023-10-25] MEDS: Docusate Sodium 100 MG CAPSULE PO (19:39)
[2023-10-25] MEDS: 0.9 % Sodium Chloride Flush 10 ML SYRINGE 5 ML IVFLUSH (19:40)
[2023-10-25 19:42] VITALS: BP 150/67; PULSE 72; RESP 18; TEMP 36.7; O2SAT 97
[2023-10-25 20:00] VITALS: RESP 18
[2023-10-25 23:20] VITALS: BP 162/69; PULSE 75; RESP 18; TEMP 36.8; O2SAT 96
[2023-10-25] MEDS: Enoxaparin Sodium 40 MG/0.4 ML SYRINGE SUBCUT (23:36)
[2023-10-25] MEDS: Magnesium Hydrox/Alum Hydrox 30 ML ORAL.SUSP PO (23:36)
[2023-10-25] MEDS: Melatonin 3 MG TABLET 6 MG PO (23:37)
[2023-10-26] MEDS: vancomycin HCL 750 MG in 0.9 % Sodium Chloride 250 ML 265 MG IV (02:12)
[2023-10-26 04:00] VITALS: BP 134/60; PULSE 70; RESP 18; TEMP 36.3; O2SAT 96
[2023-10-26 07:38] VITALS: BP 148/67; PULSE 79; RESP 18; TEMP 36.6; O2SAT 97
[2023-10-26] MEDS: Aspirin 81 MG TAB.CHEW 162 MG PO (08:52)
[2023-10-26] MEDS: Folic Acid 1 MG TABLET PO (08:52)
[2023-10-26] MEDS: Atorvastatin Calcium 40 MG TABLET PO (08:52)
[2023-10-26] MEDS: Metoprolol Succinate ER 25 MG TAB.ER.24H PO (08:52)
[2023-10-26] MEDS: amLODIPine Besylate 5 MG TABLET PO (08:52)
[2023-10-26] MEDS: Clopidogrel Bisulfate 75 MG TABLET PO (08:52)
[2023-10-26] MEDS: 0.9 % Sodium Chloride Flush 10 ML SYRINGE 5 ML IVFLUSH (08:53)
[2023-10-26] MEDS: 0.9 % Sodium Chloride Flush 3 ML SYRINGE IVFLUSH (08:53)
[2023-10-26] MEDS: Docusate Sodium 100 MG CAPSULE PO (08:54)
[2023-10-26 09:59] LABS: MANUAL DIFF FLAG NO
[2023-10-26 10:09] LABS: Basophils Absolute Auto 0.1 X10*3/uL (0.0-0.2); Basophils Percent Auto 0.8 % (0-2); Eosinophils Absolute Auto 0.3 X10*3/uL (0.0-0.4); Eosinophils Percent Auto 2.8 % (0-4); Hematocrit 35.5 % (37.0-47.0); Hemoglobin 11.9 g/dl (12.0-16.0); Imm Gran Abs Auto 0.03 X10*3/uL (0.00-0.03); Imm Gran Pct Auto 0.3 % (0.0-0.4); Lymphocytes Percent Auto 32.4 % (20-40); Mean Corpuscular HGB Conc 33.5 g/dl (31.0-35.0); Mean Corpuscular Volume 101.4 fL (80.0-98.0); Mean Platelet Volume 10.4 fL (9.4-12.3); Monocytes Percent Auto 10.7 % (2-11); Neutrophils Absolute Auto 4.9 x10*3/uL (2.0-8.3); Platelet Count 218 X10*3/uL (160-400); Red Cell Distribution Width 12.2 % (11.0-16.0); White Blood Count 9.2 X10*3/uL (4.8-10.8)
--- NOTE | 2023-10-26 10:36 | MHC.CLN ---
F/U DIET=CARDIAC. PATIENT REPORTS GOOD APPETITE AND INTAKE. DOES NOT TAKE SUPPLEMENT AT HOME SINCE EATS WELL. PATIENT IS UNDERWEIGHT BUT DOES NOT APPEAR MALNOURISHED. GOOD INTAKE WITH MOST MEALS 75%. SKIN WITH OSTEOMYELITIS LEFT FEMUR. PER WOUND RN, LEFT STUMP WITH DEVICE RELATED UNSTAGEABLE PRESSURE INJURY. FOLLOW FOR INTAKE.
[2023-10-26 10:41] LABS: Alanine Aminotransferase 18 U/L (0-31); Albumin Level 3.5 g/dL (3.5-5.0); Alkaline Phosphatase 63 U/L (39-117); Anion Gap 10 (12-20); Aspartate Amino Transferase 24 U/L (5-31); Blood Urea Nitrogen 4 mg/dL (9-16); Calcium 8.8 mg/dL (8.4-10.2); Carbon Dioxide 27 mmol/L (22-29); Chloride 109 mmol/L (96-108); Creatinine Clr Calc Pharmacy 62.6; Estimated Glomerular Filt Rate > 60; Glucose Fasting 84 mg/dL (60-99); Potassium 3.8 mmol/L (3.3-5.1); Sodium 142 mmol/L (135-145); Total Protein 6.1 g/dL (6.5-8.0)
--- NOTE | 2023-10-26 11:05 | PM.DS ---
DS: Providers Provider Date of Service: 10/26/23 Date of admission: 10/21/23 22:49 Date of discharge: 10/26/23 Primary care physician: Juli Voss MD Consults: 10/22/23 07:24 Consult to Infectious Diseases Routine Consulting Provider: [facility] Infectious Disease Reason for consultation: ? cellulitis Has provider been notified: No 10/22/23 12:33 Consult to Wound Care Routine Reason for consultation: pressure injury left bka stump 10/26/23 10:57 Consult to Infectious Diseases Routine Consulting Provider: BOBBY PADILLA Reason for consultation: osteo Has provider been notified: Yes DS: Diagnosis Discharge Diagnosis (1) Osteomyelitis: Status: Acute (2) Hypertension: Status: Acute DS: Summary Hospital Course Hospital Course: 67 year old white female with history of Peripheral vascular disease, hypertension, and hyperlipidemia who was sent to the emergency room from the outpatient ID clinic for evaluation of possible OM of the amputation stump of the left leg. She had a left below knee amputation done [address] Bustamante and then started having pain in the stump 4 months ago with some clear drainage from a spot on the stump. She consulted with Dr. Bustamante and was sent to the infectious disease clinic where she was seen today and advised to come to the emergency room for admission and treatment of possible cellulitis and osteomyelitis after a CT scan done was reported as having findings that would suggest so. She denies any pain or drainage from the stump at this time. Initial work up done in the emergency room was notable for hypokalemia (2.7) and hypomagnesemia (1.3). These have been replaced. She was also running a low grade fever of 99.[address] scan of the tibia was done and it had findings concerning for cellulitis and osteomyelitis. She received a dose of vancomycin following which admission was requested. [facility] Admitted to hospital on vancomycin and Zosyn. Seen in consultation by Infectious Disease who felt clinical presentation was in the consistent with osteo myelitis. Blood cultures were negative; PICC line was placed. Id recommends 6 weeks of IV daptomycin; she will be transferred to a short-term rehab for IV antibiotics Time Attestation Discharge coordination time: Greater than 30 minutes Quality: Safe Use of Opioids Does Pt have an Active Cancer Diagnosis on the Problem List?: No Quality: Stroke Does the patient have a stroke diagnosis?: No Physical Exam Vital Signs: Vital Signs: Last Vital Signs Temp 97.8 F 10/26/23 07:38 Pulse 79 10/26/23 07:38 Resp 18 10/26/23 07:38 BP 148/67 H 10/26/23 07:38 Pulse Ox 97 10/26/23 07:38 O2 Del Method Room Air 10/26/23 07:38 BMI result Body Mass Index 17.1 Const: Other: Awake alert no acute issues Resp: Other: Clear to auscultation bilaterally no rales rhonchi wheezes Cardio: Other: No S4; positive S1-S2; no S3 murmurs rubs or gallops GI: Other: Soft nontender nondistended normoactive bowel sounds Extrem: Other: No edema bilaterally DS: Data Data Completed and Pending Labs on day of discharge: Laboratory Results - last 24 hr 10/26/23 08:05 WBC 9.2 RBC 3.50 L Hgb 11.9 L Hct 35.5 L MCV 101.4 H MCH 34.0 H MCHC 33.5 RDW 12.2 Plt Count 218 MPV 10.4 Immature Gran % (Auto) 0.3 Neut % (Auto) 53.0 Lymph % (Auto) 32.4 Giles % (Auto) 10.7 Eos % (Auto) 2.8 Baso % (Auto) 0.8 Lymph # (Auto) 3.0 Giles # (Auto) 1.0 Eos # (Auto) 0.3 Baso # (Auto) 0.1 Abs Immat Gran (auto) 0.03 Absolute Neuts (auto) 4.9 Absolute Nucleated RBC 0.000 Nucleated RBC % (auto) 0.0 Sodium 142 Potassium 3.8 Chloride 109 H Carbon Dioxide 27 Anion Gap 10 L BUN 4 L Creatinine 0.59 Estim Creat Clear Calc 62.6 Estimated GFR > 60 Fasting Glucose 84 Calcium 8.8 AST 24 ALT 18 Alkaline Phosphatase 63 Total Protein 6.1 L Albumin 3.5 Preliminary micro results at discharge 10/21/23 20:41 Blood Culture - Preliminary Blood - Venous No growth after 48 hours. 10/21/23 15:57 Blood Culture - Preliminary Blood - Venous No growth after 48 hours. Discharge Plan Discharge Anticipated Discharge Date/Time: 10/26/23 10:59 Patient Disposition: Home Health Service Discharge Diagnosis: Left lower extremity osteomyelitis Referrals: [facility] [Outside] - 1 Week Juli Voss MD [Primary Care Provider] - 1 Week Discharge Medications: New daptomycin in 0.9 % sod chlor 350 mg/50 mL piggyback 350 mg IV DAILY Rx Instructions: administer over 30 mins Continued atorvastatin 40 mg tablet 40 mg PO DAILY 90 Days Qty: 90 3RF metoprolol succinate 25 mg tablet extended release 24 hr 25 mg PO DAILY Qty: 30 0RF clopidogrel 75 mg tablet 75 mg PO DAILY Qty: 90 0RF folic acid 1 mg tablet 1 mg PO DAILY Qty: 90 1RF amlodipine 5 mg tablet 5 mg PO DAILY atorvastatin 40 mg tablet 40 mg PO DAILY clopidogrel 75 mg tablet 75 mg PO DAILY folic acid 1 mg tablet 1 mg PO DAILY metoprolol succinate 25 mg tablet extended release 24 hr 25 mg PO DAILY amlodipine 5 mg tablet 5 mg PO DAILY Qty: 90 1RF aspirin 81 mg tablet,chewable 2 tab PO DAILY Hold Instructions: Resume on 08/29/20. Discharge Orders: Discharge Order (Routine); Ordered 10/26/23 Ordered By: Charly Royal Diet: Advance to usual diet Activity on Discharge: As tolerated Stand Alone Forms: Patient Portal Discharge page Care Plan Goals: RESUME ALL PRE-HOSPITAL MEDICATION Health Concerns: Daptomycin 350 mg IV daily. VNA will assist with administration and teaching Plan of Treatment: Follow-up with wound care and PCP next available Assessment: See discharge Discharge Date/Time: 10/26/23 14:26
[2023-10-26 11:07] LABS: Bilirubin Total 0.3 mg/dL (0.0-1.0)
[2023-10-26 11:33] VITALS: BP 147/67; PULSE 69; RESP 20; TEMP 36.4; O2SAT 98
--- NOTE | 2023-10-26 12:00 | MHC.CM.PN ---
Addendum entered by Naya Grant 10/26/23 12:36: Second IMM given. Pts has decided to go to STR at [facility]. Pts son will transport her there. Original Note: EMR reviewed and per MD rounds, pt is medically cleared for D/C home with IV abx and new comfort plus VNA. Per ID final abx recommendation is Dapotmycin 350mg IV daily x 6 weeks. Per [facility], the cost per week of this medication and supplies would be $995.15. This CM met with pt and son at bedside to discuss D/C plan and pt and son relayed concerns about doing to IV abx at home, also they are not able to afford the high cost of the medication and supplies per week. STR discussed with pt and son and they are both agreeable to this CM placing STR referrals. Hospitalist updated. [facility] pt a STR bed. Pt and son updated on bed offers and are discussing what they would like to do.
[2023-10-26 13:26] LABS: Vancomycin Random 15.9 mcg/mL (15-20)
--- NOTE | 2023-10-26 14:46 | HO.WOUND ---
Attempted follow up consultation / assessment per direct care team patient discharged to rehab facility. Unable to assess prior to discharge.
== END 2023-10-26 14:26 | disposition home health service (06) | DRG 565 ==
LOC: HO.ED 19:59 → HO.EDOVER 23:01 → HO.S3 23:40 → HO.IMC 10-25 20:35
PROVIDERS: Registered Nurse Emergency; Admitting Provider Internal Medicine; Emergency Provider Student in an Organized Health Care Education/Training Program; PCP Internal Medicine; Visit Provider Hospitalist
DX: T87.44 Infection of amputation stump, left lower extremity (principal); M86.162 Other acute osteomyelitis, left tibia and fibula; Y83.5 Amputation of limb(s) as the cause of abnormal reaction of the patient, or of later complication, without mention of misadventure at the time of the procedure; E87.6 Hypokalemia; I10 Essential (primary) hypertension; E78.5 Hyperlipidemia, unspecified; I73.9 Peripheral vascular disease, unspecified; E83.42 Hypomagnesemia; Z88.0 Allergy status to penicillin; Z79.02 Long term (current) use of antithrombotics/antiplatelets; Z87.891 Personal history of nicotine dependence; Z87.892 Personal history of anaphylaxis; Z79.899 Other long term (current) drug therapy
CPT/HCPCS: 36415; 36573; 80048; 80053; 80202; 82565; 83605; 83735; 84443; 85025; 85652; 86140; 87040; 97162; 99212; 99285; C1751; C1894; J0878; J1650; J3370; J3475; J3480; J7120

== ENCOUNTER → 2023-10-21 22:49 | Outpatient (BNV) | payer MEDICARE, OTHER, SELFPAY | PROVIDERS: Admitting Provider Internal Medicine; Emergency Provider Student in an Organized Health Care Education/Training Program; PCP Internal Medicine; Visit Provider Internal Medicine | DX: M86.9 Osteomyelitis, unspecified (principal); I10 Essential (primary) hypertension | CPT/HCPCS: 99223; 99232; 99233; 99239 ==

== ENCOUNTER → 2023-10-21 22:49 | Outpatient (BNV) | payer MEDICARE, OTHER, SELFPAY | PROVIDERS: Admitting Provider Internal Medicine; Emergency Provider Student in an Organized Health Care Education/Training Program; PCP Internal Medicine; Visit Provider Internal Medicine | DX: M86.9 Osteomyelitis, unspecified (principal) | CPT/HCPCS: 99222 ==

== ENCOUNTER 2023-11-07 14:33 | Outpatient (AMB) | payer MEDICARE, OTHER, SELFPAY ==
--- NOTE | 2023-11-07 14:36 | A.OFFVIS_ITS ---
Intake Vital Signs 3 11/07/23 14:47 Weight 99 lb BP 140/60 H Blood Pressure Location Lt brachial Position Sitting Pulse 93 Pulse Source Pulse Oximeter Temp 98.3 F Temp Source Oral Pulse Oximetry (%) 98 Intake Visit Reasons: follow up picc line antibiotics/rehab Allergies Penicillins [PENICILLINS] Allergy (Severe, Verified 11/07/23 14:48) ANAPHYLAXIS penicillamine Allergy (Unknown, Verified 11/07/23 14:48) Anaphylaxis HPI follow up picc line antibiotics/rehab 2 HPI0 Details She is here today with her favorite niece She has been tolerating Daptomycin with no muscle weakness. She is at [facility]. She is week 2/6 IV Daptomycin and last day is 12/05/2023. She has possibly less drainage from stump area left. [facility] Medical History Infection of amputation stump, left lower extremity Hypokalemia CVA (cerebral vascular accident) PVD (peripheral vascular disease) On beta angel at home Peripheral artery disease Carotid artery stenosis GERD (gastroesophageal reflux disease) Hyperlipidemia Hypertension Surgical History H/O colonoscopy Hx of blood clots Status post femoropopliteal bypass surgery S/P BKA (below knee amputation) Family History Father Medical history unknown Mother Medical history unknown Social History Household Members: None Housing: House Do you presently have visiting nurse or other home services: Yes Patient Tobacco Use Status: Former Tobacco user Years Smoked: 30 Second Hand Smoke Exposure: No service: No Cognitive needs: Yes (cane) Hearing needs: No Vision needs: Yes (glasses) Review of Systems Const All systems reviewed & are unremarkable except as noted in HPI and below Physical Exam Vital Signs: Last Vital Signs Temp 98.3 F 11/07/23 14:47 Pulse 93 11/07/23 14:47 BP 140/60 H 11/07/23 14:47 Pulse Ox 98 11/07/23 14:47 Const Other: Assessment & Plan Assessment & Plan (1) Infection of amputation stump, left lower extremity: Comment: There is probable osteomyelitis. Code(s): T87.44 - Infection of amputation stump, left lower extremity Plan: IV Daptomycin to finish 12/05 in attempt at suppression osteomyelitis. Add CK to weekly labs Wound Clinic. See in two to three weeks. Oral medication will not work to suppress OM,especially with PAD. Explained and they had opportunity to ask questions and appear to understand. (2) Osteomyelitis: Code(s): M86.9 - Osteomyelitis, unspecified Qualifiers: Laterality: left Osteomyelitis location: tibia Osteomyelitis type: u nspecified type Qualified Code(s): M86.9 - Osteomyelitis, unspecified Plan: per above. (3) Peripheral artery disease: Comment: 08/26/2021 - right popliteal atherectomy with plasty Code(s): I73.9 - Peripheral vascular disease, unspecified Plan: per vascular Coding Level of Care Code Est Pt Level 3 (03288) Diagnoses Infection of amputation stump, left lower extremity T87.44 Osteomyelitis of left tibia, unspecified type M86.9 Laterality: left Osteomyelitis location: tibia Osteomyelitis type: unspecified type Peripheral artery disease I73.9
[2023-11-07 14:47] VITALS: BP 140/60; PULSE 93; TEMP 36.8; O2SAT 98
== END 2023-11-07 15:45 | disposition home or self-care (01) ==
PROVIDERS: PCP Internal Medicine; Visit Provider Internal Medicine
DX: T87.44 Infection of amputation stump, left lower extremity (principal); M86.9 Osteomyelitis, unspecified; I73.9 Peripheral vascular disease, unspecified
CPT/HCPCS: 99213

== ENCOUNTER → 2023-11-07 14:33 | Outpatient (BNVA) | payer MEDICARE, OTHER, SELFPAY | PROVIDERS: PCP Internal Medicine; Visit Provider Internal Medicine | DX: T87.44 Infection of amputation stump, left lower extremity (principal); M86.9 Osteomyelitis, unspecified; I73.9 Peripheral vascular disease, unspecified | CPT/HCPCS: 99212 ==

== ENCOUNTER 2023-11-22 10:00 | Outpatient (AMB) | payer MEDICARE, OTHER, SELFPAY ==
[2023-11-22 10:00] VITALS: BP 146/66; PULSE 87; O2SAT 98; BMI 18.1
--- NOTE | 2023-11-22 10:00 | MHC.OFFVIS ---
Intake Vital Signs 11/22/23 10:00 Height 5 ft 2 in Weight 99 lb BMI 18.1 BP 146/66 H Blood Pressure Location Lt brachial Position Sitting Pulse 87 Pulse Source Pulse Oximeter Pulse Oximetry (%) 98 Oxygen Delivery Method Room Air Intake Visit Reasons: 6 week stump check Intake Note: Pt presents to the office today for a 6 week stump check. Pt states she still has some pain and she states she still has some clear fluid coming out of it. Pt states it has changed much since her last visit. Pt is being given IV antibiotics as well. Allergies Penicillins [PENICILLINS] Allergy (Severe, Verified 11/22/23 10:00) ANAPHYLAXIS penicillamine Allergy (Unknown, Verified 11/22/23 10:00) Anaphylaxis HPI 6 week stump check HPI Details Very pleasant 67-year-old gentleman presents for follow-up regarding nonhealing ulcer of the left stump. It has a punctate ulcer that continues to have mild serous drainage. She is currently in a facility due to IV antibiotics of daptomycin which is scheduled to finish on December 05. Now presents for routine wound check. [facility] Medical History Infection of amputation stump, left lower extremity Hypokalemia CVA (cerebral vascular accident) PVD (peripheral vascular disease) On beta angel at home Peripheral artery disease Carotid artery stenosis GERD (gastroesophageal reflux disease) Hyperlipidemia Hypertension Surgical History H/O colonoscopy Hx of blood clots Status post femoropopliteal bypass surgery S/P BKA (below knee amputation) Family History Father Medical history unknown Mother Medical history unknown Social History Household Members: None Housing: House Do you presently have visiting nurse or other home services: Yes Patient Tobacco Use Status: Former Tobacco user Years Smoked: 30 Second Hand Smoke Exposure: No service: No Cognitive needs: Yes (cane) Hearing needs: No Vision needs: Yes (glasses) Review of Systems Const All systems reviewed & are unremarkable except as noted in HPI and below Reports no additional complaints ENT Reports Normal hearing present Card Denies chest pain, Denies chest pain at rest, Denies chest pain with activity and Denies pedal edema Resp Denies cough GI Denies abdominal pain Musc Denies abnormal gait, Denies muscle cramps and Denies radiating pain into limb Skin/Breast Denies skin ulcer and Denies wounds Neuro Reports Normal hearing present and Denies abnormal gait Psych Reports no additional complaints Physical Exam Vital Signs: Last Vital Signs Pulse 87 11/22/23 10:00 BP 146/66 H 11/22/23 10:00 Pulse Ox 98 11/22/23 10:00 Oxygen Delivery Method Room Air 11/22/23 10:00 BMI result Body Mass Index 18.1 Const General: cooperative, healthy appearing and comfortable Orientation/consciousness: oriented to person, oriented to place and oriented to time HEENT Head: Yes normal to inspection Neck Neck: Yes normal visual inspection Carotids: no bruits Chest Chest palpation & inspection: normal inspection of the chest Resp Effort & Inspection: normal respiratory effort and able to speak in complete sentences Auscultation: clear to auscultation bilaterally, no crackles, no rales, no rhonchi and no wheezes Cardio Rate: regular rate Rhythm: regular rhythm Heart sounds: S1 normal heart sound present and S2 normal heart sound present Bruits: no carotid bruits Peripheral pulses: Peripheral pulses 2+ throughout GI Inspection: Yes normal to inspection Skin Other: Left stump 1 cm opening at distal tip. Mild serous drainage. Band-Aid overlying which was changed. Wounds: no wounds Hair: normal Neuro General: oriented to person, oriented to place and oriented to time Cranial nerves: Yes CN's II-XII intact bilaterally and Yes Normal hearing present Cognition (Neuro): normal cognition Motor exam (neuro): 5/5 motor strength present throughout Extrem Other: venous exam: No significant superficial varicosities or spider telangiectasias, minimal edema General: No clubbing, No cyanosis and No edema Psych Appearance: grossly normal Mental Status: mental status grossly normal Speech and movement: Normal speech and movement present Assessment & Plan Assessment & Plan (1) Infection of amputation stump, left lower extremity: Comment: There is probable osteomyelitis. Code(s): T87.44 - Infection of amputation stump, left lower extremity Plan: In short patient has nonhealing stump ulcer. Hopefully the IV antibiotics will help clear the underlying osteomyelitis in help heal this small punctate ulcer. I would hate to have to revise a stump that has function so well and she is doing well with a prosthetic on this stump. She will follow back up with us in approximately 6 weeks time to ensure that it is healing well. Thank you for allowing us to assist in her care. If there are any questions or concerns please do not hesitate to contact us Coding Level of Care Code Est Pt Level 3 (54942) Diagnoses Infection of amputation stump, left lower extremity T87.44
== END 2023-11-22 10:20 | disposition home or self-care (01) ==
PROVIDERS: PCP Internal Medicine; Visit Provider Surgery Vascular Surgery
DX: T87.44 Infection of amputation stump, left lower extremity (principal)
CPT/HCPCS: 99213

== ENCOUNTER → 2023-11-22 10:00 | Outpatient (BNVA) | payer MEDICARE, OTHER, SELFPAY | PROVIDERS: PCP Internal Medicine; Visit Provider Surgery Vascular Surgery | DX: T87.44 Infection of amputation stump, left lower extremity (principal) | CPT/HCPCS: 99212 ==

== ENCOUNTER 2023-11-28 14:24 | Outpatient (AMB) | payer MEDICARE, OTHER, SELFPAY ==
[2023-11-28 15:12] VITALS: BP 132/76
--- NOTE | 2023-11-28 15:12 | A.OFFVIS_ITS ---
Intake Vital Signs 3 11/28/23 15:12 Height 5 ft 2 in BP 132/76 Intake Visit Reasons: follow up 3 weeks/ picc line Beef Cattle Specialist Required: No Allergies Penicillins [PENICILLINS] Allergy (Severe, Verified 11/28/23 15:13) ANAPHYLAXIS penicillamine Allergy (Unknown, Verified 11/28/23 15:13) Anaphylaxis Do you need a note to return to daycare/school/sports/work: No HPI follow up 3 weeks/ picc line 2 HPI0 Details She feels well She is taking IV Daptomycin PFSH Medical History Infection of amputation stump, left lower extremity Hypokalemia CVA (cerebral vascular accident) PVD (peripheral vascular disease) On beta angel at home Peripheral artery disease Carotid artery stenosis GERD (gastroesophageal reflux disease) Hyperlipidemia Hypertension Surgical History H/O colonoscopy Hx of blood clots Status post femoropopliteal bypass surgery S/P BKA (below knee amputation) Family History Father Medical history unknown Mother Medical history unknown Social History Household Members: None Housing: House Do you presently have visiting nurse or other home services: Yes Patient Tobacco Use Status: Former Tobacco user Years Smoked: 30 Second Hand Smoke Exposure: No service: No Cognitive needs: Yes (cane) Hearing needs: No Vision needs: Yes (glasses) Review of Systems Const All systems reviewed & are unremarkable except as noted in HPI and below Physical Exam Vital Signs: Last Vital Signs BP 132/76 11/28/23 15:12 Const Other: General: cooperative Orientation/consciousness: patient oriented x3 HEENT Head: Yes normal to inspection Mouth: Normal oral and palatal mucosa present Eyes General: appearance normal, both eyes and all related structures Pupils: Equal, round and reactive pupils present Resp Effort & Inspection: normal respiratory effort Cardio Rate: regular rate Rhythm: regular rhythm GI Palpation (GI): Soft to palpation and nontender General: Yes no CVA tenderness Back/Spine/Pelvis Back: no CVA tenderness Skin General skin exam: no rashes or lesions noted Neuro General: patient oriented x3 Cranial nerves: Yes CN's II-XII intact bilaterally and Yes Equal, round and reactive pupils present Extrem Other: appears small open area General: Yes normal to inspection Psych Appearance: grossly normal Assessment & Plan Assessment & Plan (1) Infection of amputation stump, left lower extremity: Comment: There is probable osteomyelitis. Code(s): T87.44 - Infection of amputation stump, left lower extremity Plan: Maximal benefit IV Daptomycin done 12/05. See as needed. Orders: Orders 2 IR cvc remove any age 0211/28/23 M86.9 - Osteomyelitis, unspecified Medications: New 2 doxycycline hyclate 100 mg PO BID 60 caps 0RF 30 days Coding Level of Care Code Est Pt Level 3 (32585) Diagnoses Infection of amputation stump, left lower extremity T87.44
== END 2023-11-28 15:27 | disposition home or self-care (01) ==
PROVIDERS: PCP Internal Medicine; Visit Provider Internal Medicine
DX: T87.44 Infection of amputation stump, left lower extremity (principal)
CPT/HCPCS: 99213

== ENCOUNTER → 2023-11-28 14:24 | Outpatient (BNVA) | payer MEDICARE, OTHER, SELFPAY | PROVIDERS: PCP Internal Medicine; Visit Provider Internal Medicine | DX: T87.44 Infection of amputation stump, left lower extremity (principal); Z89.519 Acquired absence of unspecified leg below knee | CPT/HCPCS: 99212 ==